=== PATIENT | male | born 1935 | race Caucasian/White ===

== ENCOUNTER 2020-04-08 23:22 | Inpatient (IN) | payer BC, MEDICARE ==
[~2020-04-08] VITALS: Ht 180.3 cm; Wt 93.1 kg
[2020-04-08] MEDS ORDERED: methylPREDNISolone SOD SUCC 125 MG/2 ML VIAL IV ONE (23:30)
[2020-04-08] MEDS ORDERED: [UNRECOGNIZED DRUG - REMARK] (23:42)
[2020-04-08] MEDS ORDERED: ALBU18HF2 IH (23:42)
[2020-04-08] MEDS ORDERED: methylPREDNISolone SOD SUCC 125 MG/2 ML VIAL ONE (23:43)
[2020-04-08] MEDS ORDERED: ALBUTEROL SULFATE 2.5 MG/3 ML NEBU NEB ONE (23:45)
[2020-04-08] MEDS ORDERED: ALBUTEROL SULFATE 2.5 MG/ 0.5 ML NEBU ONE (23:49)
[2020-04-08] MEDS ORDERED: IPRATROPIUM BROMIDE 0.5 MG/2.5 ML NEBU ONE (23:50)
[2020-04-08 23:52] LABS: BASOPHILS # (AUTO) 0.1 K/uL (0.0-8.0); BASOPHILS % (AUTO) 0.3 % (0.0-2.0); EOSINOPHILS # (AUTO) 0.1 K/uL (0.0-0.7); EOSINOPHILS % (AUTO) 0.3 % (0.0-7.0); HEMATOCRIT 39.2 % (36.7-47.1); HEMOGLOBIN 12.5 g/dL (12.5-16.3); LYMPHOCYTES % (AUTO) 5.1 % (20.5-51.5); MEAN CORPUSCULAR HEMOGLOBIN 26.2 uug (23.8-33.4); MEAN CORPUSCULAR HGB CONC 32 g/dL (32.5-36.3); MEAN CORPUSCULAR VOLUME 82.1 fL (73.0-96.2); MONOCYTES # (AUTO) 1.8 K/uL (2.0-10.0); MONOCYTES % (AUTO) 9.7 % (0.0-11.0); NEUTROPHILS # (AUTO) 15.9 K/uL (1.8-8.9); NEUTROPHILS % (AUTO) 84.6 % (38.5-71.5); PLATELET COUNT (AUTO) 307 K/uL (152-348); RED BLOOD CELL COUNT(AUTO) 4.77 MIL/uL (4.06-5.63); WHITE BLOOD COUNT (AUTO) 18.8 K/uL (3.6-10.2)
[2020-04-09] VITALS (22 sets, daily range): BP systolic 111–168; BP diastolic 51–82
[2020-04-09] MEDS ORDERED: IPRATROPIUM BROMIDE 0.5 MG/2.5 ML NEBU NEB ONE
[2020-04-09] MEDS ORDERED: CEFTRIAXONE 1 G in IV DEXTROSE 5% 50 ML IV ONE ×2
[2020-04-09] MEDS ORDERED: AZITHROMYCIN IV 500 MG in IV DEXTROSE 5% 250 ML IV ONE ×2
[2020-04-09] MEDS ORDERED: DILTIAZEM HCL 25 MG IV ONE ×2 (00:01→00:41)
[2020-04-09 00:16] LABS: CARBON DIOXIDE 28 mmol/L (21-32); CHLORIDE 101 mmol/L (98-107); GLUCOSE 209 mg/dL (74-106); POTASSIUM 5.1 mmol/L (3.5-5.1); UREA NITROGEN, BLOOD 30 mg/dL (7-18)
[2020-04-09] MEDS ORDERED: WARF2TAB57 PO (00:16)
[2020-04-09 00:17] LABS: CREATININE 1.6 mg/dL (0.6-1.3)
[2020-04-09 00:19] LABS: ALANINE AMINOTRANSFERASE 60 U/L (16-63); ALKALINE PHOSPHATASE 95 U/L (50-136); ASPARTATE AMINOTRANSFERASE 71 U/L (15-37); BILIRUBIN,DIRECT 0.2 mg/dL (0.0-0.2); BILIRUBIN,TOTAL 0.4 mg/dL (0.2-1.0); TOTAL PROTEIN, SERUM 7.3 g/dL (6.4-8.2)
[2020-04-09 00:20] LABS: ABG BASE EXCESS -2.2 mmol/L; ABG HCO3 27.1 mmol/L; ABG PCO2 68.5 mmHg (35.0-45.0); ABG PH 7.215 (7.350-7.450); ABG PO2 103.9 mmHg (75.0-100.0); ABG SITE LEFT RADIAL; ABG TOTAL HEMOGLOBIN 13.7 G/dL (13.5-18.0); COHb 2.1 % (0.5-1.5); O2Hb 94.6 % (94.0-97.0)
[2020-04-09] MEDS ORDERED: OLME20TA13 PO (00:20)
[2020-04-09] MEDS ORDERED: FLUT1BLS13 IH (00:20)
[2020-04-09] MEDS ORDERED: TRIA16.5 NS (00:20)
[2020-04-09] MEDS ORDERED: ALBU8HFA4 INH (00:20)
[2020-04-09] MEDS ORDERED: CEFTRIAXONE /D5W 50ML IVPB **ER PYXIS IV ONE (00:34)
[2020-04-09] MEDS ORDERED: DILTIAZEM HCL 25 MG IV IV ONE ×2 (00:45)
[2020-04-09] MEDS ORDERED: AZITHROMYCIN 500MG/ D5W 250ML IVPB **ER PYXIS ONLY IV ONE (00:45)
[2020-04-09] MEDS ORDERED: IV NORMAL SALINE 1000 ML BAG IV ONE (01:00)
[2020-04-09 01:32] LABS: ABG BASE EXCESS -2.9 mmol/L; ABG HCO3 22.4 mmol/L; ABG PCO2 41.3 mmHg (35.0-45.0); ABG PH 7.353 (7.350-7.450); ABG PO2 95.3 mmHg (75.0-100.0); ABG SITE RIGHT RADIAL; ABG TOTAL HEMOGLOBIN 11.9 G/dL (13.5-18.0); MetHb 0.1 % (0.0-1.5); VENT MODE BIPAP
[2020-04-09] MEDS ORDERED: METOPROLOL TARTRATE 5 MG/5 ML VIAL IVP ONE ×2 (01:51→02:00)
[2020-04-09] MEDS ORDERED: ONDANSETRON 4 MG/2 ML VIAL IV PRN (03:00)
[2020-04-09] MEDS ORDERED: Z GUARD REMEDY PASTE 57 GM TUBE TOP PRN (03:00)
[2020-04-09] MEDS ORDERED: MAGNESIUM HYDROXIDE 30 ML LIQUID UDC PO PRN (03:00)
[2020-04-09] MEDS ORDERED: ACETAMINOPHEN 325 MG TABLET PO PRN (03:00)
[2020-04-09] MEDS ORDERED: levoFLOXacin 750MG/D5W 750 MG in PREMIXED 1 EACH IV SCH (03:00)
[2020-04-09] MEDS ORDERED: IV NORMAL SALINE 250 ML IV PRN (04:15)
[2020-04-09] MEDS ORDERED: levoFLOXacin 750MG/D5W 150 ML IV ONE (04:29)
[2020-04-09] MEDS ORDERED: MEROPENEM 1GM/NS 100ML IVPB **ER PYXIS ONLY IV ONE (04:30)
[2020-04-09 05:30] LABS: BASOPHILS # (AUTO) 0.2 K/uL (0.0-8.0); BASOPHILS % (AUTO) 0.9 % (0.0-2.0); HEMATOCRIT 34.8 % (36.7-47.1); HEMOGLOBIN 11.1 g/dL (12.5-16.3); LYMPHOCYTES # (AUTO) 0.2 K/uL (20.0-40.0); LYMPHOCYTES % (AUTO) 1.2 % (20.5-51.5); MEAN CORPUSCULAR HEMOGLOBIN 25.9 uug (23.8-33.4); MEAN CORPUSCULAR HGB CONC 32 g/dL (32.5-36.3); MEAN CORPUSCULAR VOLUME 81.2 fL (73.0-96.2); MONOCYTES # (AUTO) 0.4 K/uL (2.0-10.0); MONOCYTES % (AUTO) 2.3 % (0.0-11.0); NEUTROPHILS # (AUTO) 15.4 K/uL (1.8-8.9); NEUTROPHILS % (AUTO) 95.6 % (38.5-71.5); PLATELET COUNT (AUTO) 220 K/uL (152-348); RED BLOOD CELL COUNT(AUTO) 4.29 MIL/uL (4.06-5.63); WHITE BLOOD COUNT (AUTO) 16.1 K/uL (3.6-10.2)
[2020-04-09 05:48] LABS: CREATININE 1.3 mg/dL (0.6-1.3); MAGNESIUM 1.4 mg/dL (1.8-2.4); PHOSPHOROUS 3.4 mg/dL (2.5-4.9)
[2020-04-09 05:55] LABS: THYROID STIMULATING HORMONE 0.342 mIU/mL (0.358-3.740)
[2020-04-09] MEDS ORDERED: MEROPENEM 1 G in IV NORMAL SALINE 100 ML IV ONE ×2 (06:00→07:30)
[2020-04-09] MEDS ORDERED: MEROPENEM 1 G in IV NORMAL SALINE 100 ML IV SCH ×2 (06:00→18:00)
[2020-04-09 06:10] LABS: POTASSIUM 4.5 mmol/L (3.5-5.1)
[2020-04-09] MEDS: PANTOPRAZOLE SODIUM 40 MG TABLET.DR PO SCH (07:41)
[2020-04-09] MEDS ORDERED: ALBUTEROL SULFATE 2.5 MG/ 0.5 ML NEBU NEB PRN (07:45)
[2020-04-09] MEDS ORDERED: HOME MED MISCELLANEOUS XX SCH (07:45)
[2020-04-09] MEDS ORDERED: Medication Not On Formulary EA (Olmesartan Medoxomil (Benicar) 20 MG) PO SCH (09:00)
[2020-04-09] MEDS ORDERED: methylPREDNISolone SOD SUCC 40 MG/ML VIAL IV ONE (09:00)
[2020-04-09] MEDS ORDERED: FLUTICASONE/VILANTEROL 1 EACH BLST.W.DEV INH SCH (09:00)
[2020-04-09] MEDS: CEFTRIAXONE 1 G in IV DEXTROSE 5% 50 ML IV SCH (09:28)
[2020-04-09] MEDS: LOSARTAN POTASSIUM 50 MG TABLET PO SCH (09:31)
[2020-04-09] MEDS: IPRATROPIUM BROMIDE 0.5 MG/2.5 ML NEBU NEB PRN (09:43)
[2020-04-09] MEDS: MAGNESIUM SULFATE/D5W 100 ML IV SCH ×2 (10:04→11:18)
[2020-04-09] MEDS: FLUTICASONE PROP NASAL SPRAY 16 GM BOTTLE NS SCH (11:17)
[2020-04-09] MEDS: methylPREDNISolone SOD SUCC 40 MG/ML VIAL IV SCH ×2 (15:37→21:10)
[2020-04-09] MEDS ORDERED: AMIODARONE HCL IV 150 MG in IV DEXTROSE 5% 100 ML IV ONE (16:00)
[2020-04-09] MEDS ORDERED: FUROSEMIDE 20 MG/2 ML VIAL IV ONE (16:15)
[2020-04-09] MEDS: AMIODARONE HCL IV 450 MG in IV DEXTROSE 5% 250 ML IV PRN (17:16)
[2020-04-09] MEDS: ASPIRIN EC 81 MG TABLET.DR PO SCH (17:19)
[2020-04-09] MEDS: ATORVASTATIN 10 MG TABLET PO SCH (21:10)
[2020-04-09] MEDS: AZITHROMYCIN 250 MG TABLET PO SCH (21:10)
[2020-04-10] VITALS (9 sets, daily range): BP systolic 121–172; BP diastolic 65–115
[2020-04-10] MEDS: AMIODARONE HCL IV 450 MG in IV DEXTROSE 5% 250 ML IV PRN (01:48)
[2020-04-10] MEDS: PANTOPRAZOLE SODIUM 40 MG TABLET.DR PO SCH (05:17)
[2020-04-10] MEDS: methylPREDNISolone SOD SUCC 40 MG/ML VIAL IV SCH ×3 (05:17→21:02)
[2020-04-10 05:29] LABS: BASOPHILS # (AUTO) 0.1 K/uL (0.0-8.0); BASOPHILS % (AUTO) 0.3 % (0.0-2.0); HEMATOCRIT 35.3 % (36.7-47.1); HEMOGLOBIN 11.3 g/dL (12.5-16.3); LYMPHOCYTES # (AUTO) 0.3 K/uL (20.0-40.0); LYMPHOCYTES % (AUTO) 1.5 % (20.5-51.5); MEAN CORPUSCULAR HEMOGLOBIN 25.8 uug (23.8-33.4); MEAN CORPUSCULAR HGB CONC 32 g/dL (32.5-36.3); MEAN CORPUSCULAR VOLUME 80.7 fL (73.0-96.2); MONOCYTES # (AUTO) 0.8 K/uL (2.0-10.0); MONOCYTES % (AUTO) 4.3 % (0.0-11.0); NEUTROPHILS # (AUTO) 18.3 K/uL (1.8-8.9); NEUTROPHILS % (AUTO) 93.9 % (38.5-71.5); PLATELET COUNT (AUTO) 245 K/uL (152-348); RED BLOOD CELL COUNT(AUTO) 4.37 MIL/uL (4.06-5.63); WHITE BLOOD COUNT (AUTO) 19.5 K/uL (3.6-10.2)
[2020-04-10 05:49] LABS: CREATININE 1.3 mg/dL (0.6-1.3); MAGNESIUM 2.1 mg/dL (1.8-2.4); PHOSPHOROUS 3.6 mg/dL (2.5-4.9); POTASSIUM 4.1 mmol/L (3.5-5.1)
[2020-04-10 07:48] LABS: ABG BASE EXCESS -0.2 mmol/L; ABG HCO3 24.2 mmol/L; ABG PCO2 38.6 mmHg (35.0-45.0); ABG PH 7.415 (7.350-7.450); ABG PO2 141.2 mmHg (75.0-100.0); ABG SITE LEFT RADIAL; ABG TOTAL HEMOGLOBIN 11.8 G/dL (13.5-18.0); COHb 0.6 % (0.5-1.5); MetHb 0.3 % (0.0-1.5); O2Hb 97.8 % (94.0-97.0)
[2020-04-10] MEDS: ASPIRIN EC 81 MG TABLET.DR PO SCH (09:00)
[2020-04-10] MEDS: CEFTRIAXONE 1 G in IV DEXTROSE 5% 50 ML IV SCH (09:15)
[2020-04-10] MEDS: LOSARTAN POTASSIUM 50 MG TABLET PO SCH (09:15)
[2020-04-10] MEDS: FLUTICASONE PROP NASAL SPRAY 16 GM BOTTLE NS SCH (09:20)
[2020-04-10] MEDS ORDERED: PHYTONADIONE 10 MG/1 ML AMPUL SQ ONE (11:00)
[2020-04-10] MEDS: METOPROLOL TARTRATE 25 MG TABLET PO SCH ×3 (12:18→23:10)
[2020-04-10] MEDS: FUROSEMIDE 20 MG/2 ML VIAL IV SCH (14:58)
[2020-04-10] MEDS: HYDROCODONE/APAP 5-325MG TABLET PO PRN ×2 (17:13→23:08)
[2020-04-10] MEDS: ATORVASTATIN 10 MG TABLET PO SCH (21:02)
[2020-04-10] MEDS: AZITHROMYCIN 250 MG TABLET PO SCH (23:07)
[2020-04-10] MEDS: ZOLPIDEM 5 MG TABLET PO PRN (23:12)
[2020-04-11] MEDS: IPRATROPIUM BROMIDE 0.5 MG/2.5 ML NEBU NEB PRN (00:01)
[2020-04-11 00:34] VITALS: BP 138/103
[2020-04-11 05:29] VITALS: BP 107/64
[2020-04-11] MEDS: methylPREDNISolone SOD SUCC 40 MG/ML VIAL IV SCH ×3 (05:52→21:06)
[2020-04-11] MEDS: METOPROLOL TARTRATE 25 MG TABLET PO SCH ×2 (05:53→12:34)
[2020-04-11] MEDS: PANTOPRAZOLE SODIUM 40 MG TABLET.DR PO SCH (05:53)
[2020-04-11] MEDS: FUROSEMIDE 20 MG/2 ML VIAL IV SCH (08:29)
[2020-04-11] MEDS: CEFTRIAXONE 1 G in IV DEXTROSE 5% 50 ML IV SCH (08:29)
[2020-04-11] MEDS: ASPIRIN EC 81 MG TABLET.DR PO SCH (08:30)
[2020-04-11] MEDS: LOSARTAN POTASSIUM 50 MG TABLET PO SCH (08:34)
[2020-04-11] MEDS: FLUTICASONE PROP NASAL SPRAY 16 GM BOTTLE NS SCH (08:35)
[2020-04-11 12:00] VITALS: BP 106/57
[2020-04-11] MEDS ORDERED: PHYTONADIONE 5 MG TABLET PO ONE (14:45)
[2020-04-11 16:03] VITALS: BP 115/52
[2020-04-11] MEDS: METOPROLOL SUCCINATE XL 25 MG TAB.SR.24H PO SCH (16:03)
[2020-04-11] MEDS ORDERED: METOPROLOL SUCCINATE XL 50 MG TAB.SR.24H PO SCH (17:00)
[2020-04-11 20:26] VITALS: BP 119/72
[2020-04-11] MEDS: ATORVASTATIN 10 MG TABLET PO SCH (21:06)
[2020-04-11] MEDS: ZOLPIDEM 5 MG TABLET PO PRN (21:06)
[2020-04-11] MEDS: AZITHROMYCIN 250 MG TABLET PO SCH (22:15)
[2020-04-12] VITALS (7 sets, daily range): BP systolic 100–130; BP diastolic 54–97
[2020-04-12 01:28] LABS: *BILIRUBIN,URIN NEGATIVE (NEGATIVE); *BLOOD, URINE 1+ (NEGATIVE); *CLARITY,URINE CLEAR (CLEAR); *COLOR,URINE YELLOW (YELLOW); *KETONES,URINE NEGATIVE (NEGATIVE); *UROBILINOGEN,URINE 0.2 E.U./dl (NORMAL); LEUKOCYTE ESTERASE ,URINE NEGATIVE (NEGATIVE); NITRITE, URINE NEGATIVE (NEGATIVE); UGLUCOSE NEGATIVE (NEGATIVE)
[2020-04-12 01:50] LABS: BACTERIA,URINE NONE SEEN /HPF (NONE SEEN); WBC,URINE 0-3 /HPF (0-3)
[2020-04-12] MEDS: methylPREDNISolone SOD SUCC 40 MG/ML VIAL IV SCH ×2 (05:35→20:06)
[2020-04-12] MEDS: PANTOPRAZOLE SODIUM 40 MG TABLET.DR PO SCH (05:36)
[2020-04-12] MEDS: METOPROLOL SUCCINATE XL 25 MG TAB.SR.24H PO SCH ×2 (05:37→17:07)
[2020-04-12 06:51] LABS: BASOPHILS % (AUTO) 0.2 % (0.0-2.0); HEMOGLOBIN 12.8 g/dL (12.5-16.3); LYMPHOCYTES # (AUTO) 0.2 K/uL (20.0-40.0); MEAN CORPUSCULAR HEMOGLOBIN 25.9 uug (23.8-33.4); MEAN CORPUSCULAR HGB CONC 32 g/dL (32.5-36.3); MEAN CORPUSCULAR VOLUME 81.3 fL (73.0-96.2); MONOCYTES # (AUTO) 0.9 K/uL (2.0-10.0); MONOCYTES % (AUTO) 5.3 % (0.0-11.0); NEUTROPHILS % (AUTO) 93.5 % (38.5-71.5); PLATELET COUNT (AUTO) 278 K/uL (152-348); RED BLOOD CELL COUNT(AUTO) 4.93 MIL/uL (4.06-5.63); WHITE BLOOD COUNT (AUTO) 17.1 K/uL (3.6-10.2)
[2020-04-12 07:04] LABS: CARBON DIOXIDE 35 mmol/L (21-32); CHLORIDE 103 mmol/L (98-107); CREATININE 1.4 mg/dL (0.6-1.3); GLUCOSE 127 mg/dL (74-106); MAGNESIUM 2.2 mg/dL (1.8-2.4); PHOSPHOROUS 3.6 mg/dL (2.5-4.9); POTASSIUM 4.7 mmol/L (3.5-5.1); UREA NITROGEN, BLOOD 44 mg/dL (7-18)
[2020-04-12] MEDS: ASPIRIN EC 81 MG TABLET.DR PO SCH (08:55)
[2020-04-12] MEDS: CEFTRIAXONE 1 G in IV DEXTROSE 5% 50 ML IV SCH (08:56)
[2020-04-12] MEDS ORDERED: FUROSEMIDE 20 MG/2 ML VIAL IV SCH (09:00)
[2020-04-12] MEDS: FLUTICASONE PROP NASAL SPRAY 16 GM BOTTLE NS SCH (10:24)
[2020-04-12] MEDS ORDERED: ACETAzolamide 250 MG TABLET PO ONE (14:00)
[2020-04-12] MEDS: METHIMAZOLE 5 MG TABLET PO SCH (16:01)
[2020-04-12] MEDS: LEVALBUTEROL HCL NEB 0.63 MG/3 ML NEBU NEB PRN ×2 (17:24→21:33)
[2020-04-12] MEDS: IPRATROPIUM BROMIDE 0.5 MG/2.5 ML NEBU NEB PRN ×2 (17:24→21:33)
[2020-04-12] MEDS: ZOLPIDEM 5 MG TABLET PO PRN (20:07)
[2020-04-12] MEDS: ATORVASTATIN 10 MG TABLET PO SCH (20:07)
[2020-04-12] MEDS: AZITHROMYCIN 250 MG TABLET PO SCH (22:57)
[2020-04-13] VITALS: BP 120/59
[2020-04-13] MEDS: LEVALBUTEROL HCL NEB 0.63 MG/3 ML NEBU NEB PRN ×2 (01:22→19:36)
[2020-04-13] MEDS: IPRATROPIUM BROMIDE 0.5 MG/2.5 ML NEBU NEB PRN ×2 (01:22→19:36)
[2020-04-13 06:00] VITALS: BP 154/68
[2020-04-13] MEDS: PANTOPRAZOLE SODIUM 40 MG TABLET.DR PO SCH (06:08)
[2020-04-13 07:07] LABS: BASOPHILS % (AUTO) 0.1 % (0.0-2.0); HEMATOCRIT 36.8 % (36.7-47.1); HEMOGLOBIN 11.7 g/dL (12.5-16.3); LYMPHOCYTES # (AUTO) 0.2 K/uL (20.0-40.0); LYMPHOCYTES % (AUTO) 1.1 % (20.5-51.5); MEAN CORPUSCULAR HEMOGLOBIN 25.8 uug (23.8-33.4); MEAN CORPUSCULAR HGB CONC 32 g/dL (32.5-36.3); MEAN CORPUSCULAR VOLUME 81.6 fL (73.0-96.2); MONOCYTES # (AUTO) 0.9 K/uL (2.0-10.0); MONOCYTES % (AUTO) 5.7 % (0.0-11.0); NEUTROPHILS % (AUTO) 93.1 % (38.5-71.5); PLATELET COUNT (AUTO) 229 K/uL (152-348); RED BLOOD CELL COUNT(AUTO) 4.51 MIL/uL (4.06-5.63); WHITE BLOOD COUNT (AUTO) 15.1 K/uL (3.6-10.2)
[2020-04-13 07:12] LABS: BILIRUBIN,TOTAL 0.5 mg/dL (0.2-1.0); CREATININE 1.2 mg/dL (0.6-1.3); POTASSIUM 4.6 mmol/L (3.5-5.1); TOTAL PROTEIN, SERUM 5.8 g/dL (6.4-8.2)
[2020-04-13] MEDS: methylPREDNISolone SOD SUCC 40 MG/ML VIAL IV SCH (08:50)
[2020-04-13] MEDS: FLUTICASONE PROP NASAL SPRAY 16 GM BOTTLE NS SCH (08:50)
[2020-04-13] MEDS: METOPROLOL SUCCINATE XL 25 MG TAB.SR.24H PO SCH ×2 (08:53→16:48)
[2020-04-13] MEDS: CEFTRIAXONE 1 G in IV DEXTROSE 5% 50 ML IV SCH (08:54)
[2020-04-13] MEDS: METHIMAZOLE 5 MG TABLET PO SCH (08:54)
[2020-04-13] MEDS: ASPIRIN EC 81 MG TABLET.DR PO SCH (08:54)
[2020-04-13] MEDS ORDERED: FUROSEMIDE 40 MG TABLET PO SCH (09:00)
[2020-04-13 11:51] VITALS: BP 93/57
[2020-04-13] MEDS: PROTEIN SUPPLEMENT (PROSTAT) 30 ML LIQUID PO SCH ×2 (12:08→16:45)
[2020-04-13 16:09] VITALS: BP 102/53
[2020-04-13] MEDS: predniSONE 20 MG TABLET PO SCH (16:44)
[2020-04-13] MEDS: APIXABAN 5 MG TABLET PO SCH (16:49)
[2020-04-13] MEDS: ATORVASTATIN 10 MG TABLET PO SCH (20:13)
[2020-04-13 20:18] VITALS: BP 91/59
[2020-04-13] MEDS: AZITHROMYCIN 250 MG TABLET PO SCH (22:19)
[2020-04-14] VITALS (7 sets, daily range): BP systolic 95–144; BP diastolic 58–89
[2020-04-14] MEDS: ZOLPIDEM 5 MG TABLET PO PRN (00:08)
[2020-04-14] MEDS: PANTOPRAZOLE SODIUM 40 MG TABLET.DR PO SCH (06:03)
[2020-04-14 07:15] LABS: BASOPHILS % (AUTO) 0.1 % (0.0-2.0); HEMOGLOBIN 12.5 g/dL (12.5-16.3); LYMPHOCYTES # (AUTO) 0.3 K/uL (20.0-40.0); LYMPHOCYTES % (AUTO) 1.7 % (20.5-51.5); MEAN CORPUSCULAR HEMOGLOBIN 25.9 uug (23.8-33.4); MEAN CORPUSCULAR HGB CONC 32 g/dL (32.5-36.3); MEAN CORPUSCULAR VOLUME 80.7 fL (73.0-96.2); MONOCYTES # (AUTO) 1.1 K/uL (2.0-10.0); MONOCYTES % (AUTO) 6.9 % (0.0-11.0); NEUTROPHILS # (AUTO) 14.2 K/uL (1.8-8.9); NEUTROPHILS % (AUTO) 91.3 % (38.5-71.5); PLATELET COUNT (AUTO) 226 K/uL (152-348); RED BLOOD CELL COUNT(AUTO) 4.83 MIL/uL (4.06-5.63); WHITE BLOOD COUNT (AUTO) 15.6 K/uL (3.6-10.2)
[2020-04-14 07:35] LABS: CREATININE 1.2 mg/dL (0.6-1.3); MAGNESIUM 2.4 mg/dL (1.8-2.4); POTASSIUM 4.1 mmol/L (3.5-5.1)
[2020-04-14] MEDS: PROTEIN SUPPLEMENT (PROSTAT) 30 ML LIQUID PO SCH ×3 (08:16→16:45)
[2020-04-14] MEDS: predniSONE 20 MG TABLET PO SCH ×2 (08:16→17:04)
[2020-04-14] MEDS: FLUTICASONE PROP NASAL SPRAY 16 GM BOTTLE NS SCH (08:16)
[2020-04-14] MEDS: METHIMAZOLE 5 MG TABLET PO SCH (08:26)
[2020-04-14] MEDS: APIXABAN 5 MG TABLET PO SCH ×2 (08:29→16:50)
[2020-04-14] MEDS: METOPROLOL SUCCINATE XL 25 MG TAB.SR.24H PO SCH ×2 (08:37→16:49)
[2020-04-14] MEDS ORDERED: FUROSEMIDE 20 MG TABLET PO SCH (09:00)
[2020-04-14 12:17] LABS: IRON, SERUM 30 ug/dL (50-175)
[2020-04-14] MEDS ORDERED: FLUT16SP NS (16:39)
[2020-04-14] MEDS ORDERED: ATOR10TA PO (16:39)
[2020-04-14] MEDS ORDERED: ACID1TAB4 PO (16:39)
[2020-04-14] MEDS ORDERED: PRED20TA PO (16:39)
[2020-04-14] MEDS ORDERED: PROT30LI PO (16:39)
[2020-04-14] MEDS ORDERED: IPRA0.2S6 NEB (16:39)
[2020-04-14] MEDS ORDERED: TEMA7.5C PO (16:39)
[2020-04-14] MEDS ORDERED: PANT40TA2 PO (16:39)
[2020-04-14] MEDS ORDERED: ACET325T53 PO (16:39)
[2020-04-14] MEDS ORDERED: MAGN400O6 PO (16:39)
[2020-04-14] MEDS ORDERED: HYDR-3972 PO (16:39)
[2020-04-14] MEDS ORDERED: APIX5TAB PO (16:39)
[2020-04-14] MEDS ORDERED: METH5TAB34 PO (16:39)
[2020-04-14] MEDS ORDERED: MULT-594 PO (16:39)
[2020-04-14] MEDS ORDERED: MENT71OI TOP (16:39)
[2020-04-14] MEDS ORDERED: METO-356 PO (16:39)
[2020-04-14] MEDS ORDERED: LEVA0.6320 NEB (16:39)
[2020-04-14] MEDS ORDERED: FURO20TA4 PO (16:39)
[2020-04-16 20:52] LABS: *THYROGLOBULIN <0.10
== END 2020-04-14 17:45 | DRG 871 ==
LOC: ER 23:24 → CCU 04-09 03:01 → TELE-TD3 04-10 06:02 → TELE3 04-12 10:15
PROVIDERS: ADMIT Hospitalist; ATTEND Internal Medicine
PROC: 5A09357 Assistance with Respiratory Ventilation, Less than 24 Consecutive Hours, Continuous Positive Airway Pressure (ICD-10-PCS; principal; 2020-04-09)
DX: A41.9 Sepsis, unspecified organism (principal); J96.01 Acute respiratory failure with hypoxia; I21.A1 Myocardial infarction type 2; I50.23 Acute on chronic systolic (congestive) heart failure; G92 Toxic encephalopathy; J69.0 Pneumonitis due to inhalation of food and vomit; N17.0 Acute kidney failure with tubular necrosis; E43 Unspecified severe protein-calorie malnutrition; J96.02 Acute respiratory failure with hypercapnia; J45.901 Unspecified asthma with (acute) exacerbation; I48.92 Unspecified atrial flutter; J44.0 Chronic obstructive pulmonary disease with (acute) lower respiratory infection; D68.9 Coagulation defect, unspecified; E87.2 Acidosis; I43 Cardiomyopathy in diseases classified elsewhere; K92.2 Gastrointestinal hemorrhage, unspecified; E83.42 Hypomagnesemia; Z86.711 Personal history of pulmonary embolism; Z86.718 Personal history of other venous thrombosis and embolism; Z79.899 Other long term (current) drug therapy; I48.91 Unspecified atrial fibrillation; E05.90 Thyrotoxicosis, unspecified without thyrotoxic crisis or storm; Z79.01 Long term (current) use of anticoagulants; Z79.82 Long term (current) use of aspirin; N28.1 Cyst of kidney, acquired; N40.0 Benign prostatic hyperplasia without lower urinary tract symptoms; I44.0 Atrioventricular block, first degree; I25.10 Atherosclerotic heart disease of native coronary artery without angina pectoris; I25.2 Old myocardial infarction; I08.1 Rheumatic disorders of both mitral and tricuspid valves; I11.0 Hypertensive heart disease with heart failure; T45.515A Adverse effect of anticoagulants, initial encounter; Y92.89 Other specified places as the place of occurrence of the external cause; E66.9 Obesity, unspecified; E11.9 Type 2 diabetes mellitus without complications; D50.9 Iron deficiency anemia, unspecified; Z68.28 Body mass index [BMI] 28.0-28.9, adult; R53.1 Weakness
CPT/HCPCS: 36415; 36600; 70030-TC; 71045; 76604; 82378; 82785; 83550; 83605; 83615; 83735; 84100; 84443; 84480; 85025; 85610; 85730; 86140; 87040; 87070; 87086; 93005; 93307; 94640; 94660; A4663; G0378; J0282; J0456; J0696; J1940; J1956; J2185; J2920; J2930; J3430; J3475; J3490; J3535; J3590; J7030; J7050; J7060; J7512; J7614; J8499; Q0144

== ENCOUNTER 2020-04-14 12:47 | Inpatient (IN) | payer BC, MEDICARE ==
[~2020-04-14] VITALS: Ht 180.3 cm; Wt 89.4 kg
[2020-04-14 07:30] VITALS: BP 127/77
[2020-04-14 11:30] VITALS: BP 117/66
[~2020-04-14 12:47] MED LIST: ALBU8HFA4 INH; FLUT1BLS13 IH; OLME20TA13 PO; TRIA16.5 NS; WARF2TAB57 PO
[2020-04-14 15:30] VITALS: BP 116/89
[2020-04-14] MEDS ORDERED: LEVA0.6320 NEB (16:39)
[2020-04-14] MEDS ORDERED: MULT-594 PO (16:39)
[2020-04-14] MEDS ORDERED: ACET325T53 PO (16:39)
[2020-04-14] MEDS ORDERED: MAGN400O6 PO (16:39)
[2020-04-14] MEDS ORDERED: ACID1TAB4 PO (16:39)
[2020-04-14] MEDS ORDERED: IPRA0.2S6 NEB (16:39)
[2020-04-14] MEDS ORDERED: ATOR10TA PO (16:39)
[2020-04-14] MEDS ORDERED: PANT40TA2 PO (16:39)
[2020-04-14] MEDS ORDERED: FLUT16SP NS (16:39)
[2020-04-14] MEDS ORDERED: MENT71OI TOP (16:39)
[2020-04-14] MEDS ORDERED: METO-356 PO (16:39)
[2020-04-14] MEDS ORDERED: FURO20TA4 PO (16:39)
[2020-04-14] MEDS ORDERED: TEMA7.5C PO (16:39)
[2020-04-14] MEDS ORDERED: PROT30LI PO (16:39)
[2020-04-14] MEDS ORDERED: PRED20TA PO (16:39)
[2020-04-14] MEDS ORDERED: METH5TAB34 PO (16:39)
[2020-04-14] MEDS ORDERED: APIX5TAB PO (16:39)
[2020-04-14] MEDS ORDERED: HYDR-3972 PO (16:39)
[2020-04-14 20:21] VITALS: BP 130/58
[2020-04-14] MEDS ORDERED: HYDROCODONE/APAP 5-325MG TABLET PO PRN (20:45)
[2020-04-14] MEDS ORDERED: Z GUARD REMEDY PASTE 57 GM TUBE TOP PRN (20:45)
[2020-04-14] MEDS ORDERED: ACETAMINOPHEN 325 MG TABLET PO PRN (20:45)
[2020-04-14] MEDS ORDERED: MAGNESIUM HYDROXIDE 30 ML LIQUID UDC PO PRN (20:45)
[2020-04-14] MEDS: ATORVASTATIN 10 MG TABLET PO SCH (21:35)
[2020-04-14] MEDS: TEMAZEPAM 7.5 MG CAPSULE PO PRN (21:35)
[2020-04-15 04:21] VITALS: BP 114/70
--- NOTE | 2020-04-15 05:05 | NUR ---
Patient is a new admission from [facility] with admitting diagnosis of COPD Exacerbation under care of Dr. Cary. AAO x4. No acute distress or SOB was noted. On 1 L O2 via NC. Condition fair. VSS. Able to make needs known. No Complain of pain. Contacted Dr. Sr for medication reconciliation. RT contacted to put the patient on Bipap machine at night. Physical assessment done. MRSA swab done and sent to the lab. All due medications administered and well tolerated. Fall prevention maintained. All needs attended promptly. Bed in locked and low position, Side rails up x2 for safety. Call light and frequently using items within reach. Continue to monitor and will endorse to the oncoming nurse.
[2020-04-15] MEDS: PANTOPRAZOLE SODIUM 40 MG TABLET.DR PO SCH (06:07)
[2020-04-15 07:30] VITALS: BP 118/67
[2020-04-15] MEDS ORDERED: predniSONE 20 MG TABLET PO SCH (08:00)
[2020-04-15] MEDS: FLUTICASONE PROP NASAL SPRAY 16 GM BOTTLE NS SCH (13:25)
[2020-04-15] MEDS: METOPROLOL SUCCINATE XL 25 MG TAB.SR.24H PO SCH ×2 (13:29→17:00)
[2020-04-15] MEDS: ACIDOPHILUS/BULGARICUS CHEW TAB PO SCH (13:32)
[2020-04-15] MEDS: MULTIVITAMINS,THERAPEUTIC TABLET PO SCH (13:32)
[2020-04-15] MEDS: METHIMAZOLE 5 MG TABLET PO SCH (13:33)
[2020-04-15] MEDS: FUROSEMIDE 20 MG TABLET PO SCH (13:33)
[2020-04-15] MEDS: APIXABAN 5 MG TABLET PO SCH ×2 (13:36→17:26)
[2020-04-15] MEDS: PROTEIN SUPPLEMENT (PROSTAT) 30 ML LIQUID PO SCH ×3 (13:38→17:24)
[2020-04-15 15:49] VITALS: BP 110/62
[2020-04-15] MEDS: predniSONE 20 MG TABLET PO SCH (17:25)
--- NOTE | 2020-04-15 19:45 | NUR ---
Sleeping during initial rounds. No s/s of pain/discomforts noted. Safety measures and fall prevention maintained. Continue care as planned.
[2020-04-15 20:21] VITALS: BP 107/46
[2020-04-15] MEDS: ATORVASTATIN 10 MG TABLET PO SCH (20:32)
[2020-04-15] MEDS: TEMAZEPAM 7.5 MG CAPSULE PO PRN (21:08)
[2020-04-15] MEDS: IPRATROPIUM BROMIDE 0.5 MG/2.5 ML NEBU NEB PRN (21:18)
[2020-04-15] MEDS: LEVALBUTEROL HCL NEB 0.63 MG/3 ML NEBU NEB PRN (21:18)
[2020-04-16 04:58] VITALS: BP 112/87
--- NOTE | 2020-04-16 05:40 | NUR ---
Shift End Report: Slept good. VS stable. No complaint presented throughout the night. All needs attended and met. No significant event reported. Continue current rehab plan of care.
[2020-04-16] MEDS: PANTOPRAZOLE SODIUM 40 MG TABLET.DR PO SCH (06:08)
[2020-04-16 08:00] VITALS: BP 123/80
[2020-04-16] MEDS: predniSONE 20 MG TABLET PO SCH ×2 (08:31→17:37)
[2020-04-16] MEDS: PROTEIN SUPPLEMENT (PROSTAT) 30 ML LIQUID PO SCH ×3 (08:33→17:40)
[2020-04-16] MEDS: FLUTICASONE PROP NASAL SPRAY 16 GM BOTTLE NS SCH (08:33)
[2020-04-16] MEDS: MULTIVITAMINS,THERAPEUTIC TABLET PO SCH (08:34)
[2020-04-16] MEDS: FUROSEMIDE 20 MG TABLET PO SCH (08:34)
[2020-04-16] MEDS: ACIDOPHILUS/BULGARICUS CHEW TAB PO SCH (08:34)
[2020-04-16] MEDS: METOPROLOL SUCCINATE XL 25 MG TAB.SR.24H PO SCH ×2 (08:35→17:39)
[2020-04-16] MEDS: APIXABAN 5 MG TABLET PO SCH ×2 (08:36→17:38)
[2020-04-16] MEDS: METHIMAZOLE 5 MG TABLET PO SCH (08:44)
--- NOTE | 2020-04-16 08:49 | NUR ---
Patient is awake, alert, in bed, no complain of pain or discomfort at this time. Patient on 2LPM via NC. Needs attended to promptly. Patient noted with heart rate of 141 and he complained of constipation. RIC Mcgregor saw patient, update given and said hold PT for now due to elevated HR and that he will order something for constipation. Will continue to monitor and update PT.
--- NOTE | 2020-04-16 09:00 | NUR ---
Patient seen and examined by DNP Jose Mcgregor, informed him regarding HR of 141 with no new order at this time since patient is already on betablocker. Also informed DNP regarding patient's complain of constipation and he said he will put in order.
[2020-04-16] MEDS ORDERED: BISACODYL 5 MG TABLET.DR PO ONE (09:30)
[2020-04-16 10:40] LABS: BASOPHILS # (AUTO) 0.1 K/uL (0.0-8.0); BASOPHILS % (AUTO) 0.5 % (0.0-2.0); EOSINOPHILS % (AUTO) 0.1 % (0.0-7.0); HEMATOCRIT 41.4 % (36.7-47.1); HEMOGLOBIN 13.1 g/dL (12.5-16.3); LYMPHOCYTES # (AUTO) 0.2 K/uL (20.0-40.0); LYMPHOCYTES % (AUTO) 1.4 % (20.5-51.5); MEAN CORPUSCULAR HEMOGLOBIN 25.7 uug (23.8-33.4); MEAN CORPUSCULAR HGB CONC 32 g/dL (32.5-36.3); MEAN CORPUSCULAR VOLUME 81.3 fL (73.0-96.2); MONOCYTES # (AUTO) 0.9 K/uL (2.0-10.0); MONOCYTES % (AUTO) 6.2 % (0.0-11.0); NEUTROPHILS # (AUTO) 13.4 K/uL (1.8-8.9); NEUTROPHILS % (AUTO) 91.8 % (38.5-71.5); PLATELET COUNT (AUTO) 194 K/uL (152-348); WHITE BLOOD COUNT (AUTO) 14.6 K/uL (3.6-10.2)
[2020-04-16] MEDS: AMIODARONE HCL 200 MG TABLET PO SCH ×3 (10:45→20:24)
[2020-04-16 11:01] LABS: MAGNESIUM 1.8 mg/dL (1.8-2.4); PHOSPHOROUS 2.6 mg/dL (2.5-4.9); POTASSIUM 3.5 mmol/L (3.5-5.1)
[2020-04-16 16:09] VITALS: BP 125/93
--- NOTE | 2020-04-16 16:15 | NUR ---
Informed Dr. Grayson regarding HR still at 140 despite being given amiodarone and his routine metoprolol, but no new order at this time. Will continue to monitor.
[2020-04-16] MEDS: ATORVASTATIN 10 MG TABLET PO SCH (20:25)
[2020-04-16 20:28] VITALS: BP 109/72
[2020-04-16] MEDS: TEMAZEPAM 7.5 MG CAPSULE PO PRN (20:33)
[2020-04-16] MEDS: IPRATROPIUM BROMIDE 0.5 MG/2.5 ML NEBU NEB PRN (21:10)
--- NOTE | 2020-04-16 21:10 | NUR ---
Received pt resting in bed. AAO x4. On 2L O2 via NC, no acute distress noted. Pt received his breathing treatment. Due meds given as ordered. Safety measures maintained. Call light and personal items within reach. Will continue to monitor.
[2020-04-16] MEDS: LEVALBUTEROL HCL NEB 0.63 MG/3 ML NEBU NEB PRN (21:11)
[2020-04-17 04:42] VITALS: BP 113/70
[2020-04-17] MEDS: PANTOPRAZOLE SODIUM 40 MG TABLET.DR PO SCH (06:08)
[2020-04-17] MEDS: IPRATROPIUM BROMIDE 0.5 MG/2.5 ML NEBU NEB PRN ×2 (07:17→20:40)
[2020-04-17] MEDS: FLUTICASONE PROP NASAL SPRAY 16 GM BOTTLE NS SCH (07:54)
[2020-04-17] MEDS: ACIDOPHILUS/BULGARICUS CHEW TAB PO SCH (07:55)
[2020-04-17] MEDS: FUROSEMIDE 20 MG TABLET PO SCH (07:55)
[2020-04-17] MEDS: MULTIVITAMINS,THERAPEUTIC TABLET PO SCH (07:55)
[2020-04-17] MEDS: predniSONE 20 MG TABLET PO SCH (07:55)
[2020-04-17] MEDS: APIXABAN 5 MG TABLET PO SCH ×2 (07:57→16:26)
[2020-04-17] MEDS: METHIMAZOLE 5 MG TABLET PO SCH (07:57)
[2020-04-17 08:00] VITALS: BP 110/77
[2020-04-17] MEDS: METOPROLOL SUCCINATE XL 25 MG TAB.SR.24H PO SCH ×2 (08:00→16:30)
[2020-04-17] MEDS: PROTEIN SUPPLEMENT (PROSTAT) 30 ML LIQUID PO SCH ×3 (08:04→16:11)
[2020-04-17] MEDS: AMIODARONE HCL 200 MG TABLET PO SCH ×2 (10:34→20:07)
[2020-04-17] MEDS ORDERED: POTASSIUM CHLORIDE 20 MEQ TAB.PRT.SR PO ONE (11:00)
[2020-04-17 16:00] VITALS: BP 101/72
[2020-04-17 20:04] VITALS: BP 108/79
[2020-04-17] MEDS: ATORVASTATIN 10 MG TABLET PO SCH (20:07)
[2020-04-17] MEDS: TEMAZEPAM 7.5 MG CAPSULE PO PRN (20:08)
[2020-04-17] MEDS: LEVALBUTEROL HCL NEB 0.63 MG/3 ML NEBU NEB PRN (20:41)
--- NOTE | 2020-04-17 20:51 | NUR ---
Received pt resting in bed and on breathing treatment. AAO x4. On 2L O2 via NC, no acute distress noted. Denies pain/ discomfort. Due meds given as ordered. Sleeping pill also given as per pt request. Safety measures maintained. Call light and personal items within reach. Will continue to monitor.
[2020-04-18] MEDS: LEVALBUTEROL HCL NEB 0.63 MG/3 ML NEBU NEB PRN (03:42)
[2020-04-18] MEDS: IPRATROPIUM BROMIDE 0.5 MG/2.5 ML NEBU NEB PRN (03:42)
[2020-04-18 04:58] VITALS: BP 106/86
[2020-04-18] MEDS: PANTOPRAZOLE SODIUM 40 MG TABLET.DR PO SCH (06:09)
[2020-04-18 07:30] VITALS: BP 126/88
[2020-04-18 07:36] LABS: BASOPHILS # (AUTO) 0.1 K/uL (0.0-8.0); BASOPHILS % (AUTO) 0.4 % (0.0-2.0); EOSINOPHILS % (AUTO) 0.3 % (0.0-7.0); HEMATOCRIT 40.4 % (36.7-47.1); LYMPHOCYTES # (AUTO) 0.3 K/uL (20.0-40.0); LYMPHOCYTES % (AUTO) 2.2 % (20.5-51.5); MEAN CORPUSCULAR HEMOGLOBIN 25.9 uug (23.8-33.4); MEAN CORPUSCULAR HGB CONC 32 g/dL (32.5-36.3); MEAN CORPUSCULAR VOLUME 80.7 fL (73.0-96.2); MONOCYTES # (AUTO) 1.6 K/uL (2.0-10.0); MONOCYTES % (AUTO) 10.5 % (0.0-11.0); NEUTROPHILS # (AUTO) 13.6 K/uL (1.8-8.9); NEUTROPHILS % (AUTO) 86.6 % (38.5-71.5); PLATELET COUNT (AUTO) 241 K/uL (152-348); WHITE BLOOD COUNT (AUTO) 15.7 K/uL (3.6-10.2)
[2020-04-18 07:43] LABS: CREATININE 0.9 mg/dL (0.6-1.3); MAGNESIUM 2.1 mg/dL (1.8-2.4); PHOSPHOROUS 2.3 mg/dL (2.5-4.9); POTASSIUM 4.2 mmol/L (3.5-5.1)
[2020-04-18] MEDS: ACIDOPHILUS/BULGARICUS CHEW TAB PO SCH (08:50)
[2020-04-18] MEDS: MULTIVITAMINS,THERAPEUTIC TABLET PO SCH (08:50)
[2020-04-18] MEDS: AMIODARONE HCL 200 MG TABLET PO SCH (08:50)
[2020-04-18] MEDS: FUROSEMIDE 20 MG TABLET PO SCH (08:50)
[2020-04-18] MEDS: METOPROLOL SUCCINATE XL 25 MG TAB.SR.24H PO SCH ×2 (08:52→17:40)
[2020-04-18] MEDS: METHIMAZOLE 5 MG TABLET PO SCH (08:53)
[2020-04-18] MEDS: APIXABAN 5 MG TABLET PO SCH ×2 (08:54→16:33)
[2020-04-18] MEDS: PROTEIN SUPPLEMENT (PROSTAT) 30 ML LIQUID PO SCH ×3 (08:54→17:32)
[2020-04-18] MEDS: FLUTICASONE PROP NASAL SPRAY 16 GM BOTTLE NS SCH (08:54)
[2020-04-18] MEDS ORDERED: predniSONE 20 MG TABLET PO SCH (09:00)
[2020-04-18] MEDS ORDERED: ACETAzolamide 250 MG TABLET PO ONE (12:00)
--- NOTE | 2020-04-18 12:00 | NUR ---
Patient seen by Dr. Kenan MD made aware that patient still having episodes of tachycardia 110's-120's but patient remains asymptomatic. Per MD no new order at this time.
[2020-04-18] MEDS ORDERED: NEUTRA PHOS PACKET PO ONE (15:45)
[2020-04-18 16:05] VITALS: BP 118/70
[2020-04-18 17:40] VITALS: BP 118/72
--- NOTE | 2020-04-18 18:45 | NUR ---
Received an order from Dr. Núñez to discharge patient to telemetry for atrial flutter. Patient made aware regarding discharge to telemetry and patient is agreeable. Discharge papers signed by patient. All belongings well accounted for.
--- NOTE | 2020-04-18 19:00 | NUR ---
Discharged patient to telemetry for atrial flutter. Patient remains alert, oriented x 4. He denies any pain or discomfort. He is on 2 LPM via nasal cannula. No complain of any SOB or dyspnea. Peripheral IV line on the right AC G22, patent with no signs of infection. Report given to Kelvin KASPER.
[2020-04-18] MEDS ORDERED: AMIODARONE HCL 200 MG TABLET PO SCH (21:00)
== END 2020-04-18 18:35 | disposition short-term general hospital (02) | DRG 189 ==
PROVIDERS: ADMIT Physical Medicine & Rehabilitation Pain Medicine; ATTEND Physical Medicine & Rehabilitation Pain Medicine
DX: J96.02 Acute respiratory failure with hypercapnia (principal); I50.43 Acute on chronic combined systolic (congestive) and diastolic (congestive) heart failure; I21.A1 Myocardial infarction type 2; E43 Unspecified severe protein-calorie malnutrition; G92 Toxic encephalopathy; N17.0 Acute kidney failure with tubular necrosis; J69.0 Pneumonitis due to inhalation of food and vomit; I48.92 Unspecified atrial flutter; J44.1 Chronic obstructive pulmonary disease with (acute) exacerbation; J45.901 Unspecified asthma with (acute) exacerbation; J44.0 Chronic obstructive pulmonary disease with (acute) lower respiratory infection; I42.9 Cardiomyopathy, unspecified; D68.9 Coagulation defect, unspecified; E87.2 Acidosis; I43 Cardiomyopathy in diseases classified elsewhere; J96.01 Acute respiratory failure with hypoxia; D64.9 Anemia, unspecified; E78.5 Hyperlipidemia, unspecified; I08.1 Rheumatic disorders of both mitral and tricuspid valves; I11.0 Hypertensive heart disease with heart failure; I48.91 Unspecified atrial fibrillation; Z86.711 Personal history of pulmonary embolism; Z86.718 Personal history of other venous thrombosis and embolism; D50.9 Iron deficiency anemia, unspecified; E05.90 Thyrotoxicosis, unspecified without thyrotoxic crisis or storm; E66.9 Obesity, unspecified; Z68.28 Body mass index [BMI] 28.0-28.9, adult; K59.00 Constipation, unspecified; Z79.01 Long term (current) use of anticoagulants; R73.03 Prediabetes
CPT/HCPCS: 36415; 83735; 84100; 85025; 93005; 94640; 94660; J3535; J3590; J7512; J8499

== ENCOUNTER 2020-04-22 13:56 | Inpatient (IN) | payer BC, MEDICARE ==
[~2020-04-22] VITALS: Ht 180.3 cm; Wt 85.5 kg
[~2020-04-22 13:56] MED LIST changes: +ACET325T53 PO; +ACID1TAB4 PO; -ALBU8HFA4 INH; +APIX5TAB PO; +ATOR10TA PO; +FLUT16SP NS; -FLUT1BLS13 IH; +FURO20TA4 PO; +HYDR-3972 PO; +IPRA0.2S6 NEB; +LEVA0.6320 NEB; +MAGN400O6 PO; +MENT71OI TOP; +METH5TAB34 PO; +METO-356 PO; +MULT-594 PO; -OLME20TA13 PO; +PANT40TA2 PO; +PRED20TA PO; +PROT30LI PO; +TEMA7.5C PO; -TRIA16.5 NS; -WARF2TAB57 PO
--- NOTE | 2020-04-22 18:33 | NUR ---
84 year old male received from [facility] room 317.pt isxox4.orient the pt to room .call light with in reach. called for admission orders
[2020-04-22] MEDS ORDERED: METO-357 PO (18:43)
--- NOTE | 2020-04-22 20:00 | NUR ---
RECEIVED PATIENT AWAKE IN BED. A/O X4. DENIES ANY PAIN OR DISCOMFORT. NO RESP. DISTRESS NOTED. ON RA. VS WNL. CALL LIGHT IN REACH. ALL NEEDS ATTENDED. WILL CONTINUE TO MONITOR AND ASSESS.
[2020-04-22] MEDS ORDERED: methylPREDNISolone 1 PACK TAB.DS.PK [4MG TAB] PO ONE (20:45)
[2020-04-22] MEDS ORDERED: TEMAZEPAM 7.5 MG CAPSULE PO PRN (20:45)
[2020-04-22] MEDS ORDERED: MAGNESIUM HYDROXIDE 30 ML LIQUID UDC PO PRN (20:45)
[2020-04-22] MEDS: ATORVASTATIN 10 MG TABLET PO SCH (21:12)
[2020-04-22 21:28] VITALS: BP 110/70
[2020-04-23 05:16] VITALS: BP 130/70
[2020-04-23] MEDS: PANTOPRAZOLE SODIUM 40 MG TABLET.DR PO SCH (06:29)
--- NOTE | 2020-04-23 07:11 | NUR ---
RECEIVED SITTING IN THE CHAIR ,PT IS AXOX4 VS ARE STABLE CALL LIGHT WITH IN REACH
[2020-04-23] MEDS ORDERED: methylPREDNISolone 4 MG TABLET (DAY#1, ACB) PO ONE (07:30)
[2020-04-23] MEDS: AMIODARONE HCL 200 MG TABLET PO SCH (07:56)
[2020-04-23] MEDS: METOPROLOL SUCCINATE XL 50 MG TAB.SR.24H PO SCH ×2 (07:56→16:04)
[2020-04-23] MEDS: METHIMAZOLE 5 MG TABLET PO SCH (07:56)
[2020-04-23] MEDS: MULTIVITAMINS,THERAPEUTIC TABLET PO SCH (07:56)
[2020-04-23] MEDS: ACIDOPHILUS/BULGARICUS CHEW TAB PO SCH (07:56)
[2020-04-23] MEDS: FUROSEMIDE 20 MG TABLET PO SCH (07:56)
[2020-04-23] MEDS: APIXABAN 5 MG TABLET PO SCH ×2 (07:58→16:04)
[2020-04-23 08:00] VITALS: BP 120/69
[2020-04-23] MEDS ORDERED: predniSONE 20 MG TABLET PO SCH (08:00)
[2020-04-23] MEDS ORDERED: METOPROLOL SUCCINATE XL 25 MG TAB.SR.24H PO SCH (09:00)
[2020-04-23] MEDS: FLUTICASONE PROP NASAL SPRAY 16 GM BOTTLE NS SCH (09:52)
[2020-04-23] MEDS: IPRATROPIUM BROMIDE 0.5 MG/2.5 ML NEBU NEB PRN (11:28)
[2020-04-23] MEDS: ALBUTEROL SULFATE 1.25 MG/3 ML NEBU NEB PRN (11:28)
[2020-04-23] MEDS ORDERED: methylPREDNISolone 4 MG TABLET (DAY#1, PC LUNCH) PO ONE (12:30)
[2020-04-23 15:05] VITALS: BP 111/67
[2020-04-23] MEDS ORDERED: methylPREDNISolone 4 MG TABLET (DAY#1, PC DINNER) PO ONE (17:30)
--- NOTE | 2020-04-23 19:30 | NUR ---
Received patient lying in bed. AAOx4. No s/s of acute distress noted at this time. Pt is on RA. Denies SOB and Chest pain. Safety measures in place, bed low and locked, and call light within reach. Will continue to monitor.
[2020-04-23 20:00] VITALS: BP 129/77
[2020-04-23] MEDS: ATORVASTATIN 10 MG TABLET PO SCH (20:33)
[2020-04-23] MEDS ORDERED: methylPREDNISolone 4 MG TABLET (DAY#1, HS) PO ONE (21:00)
[2020-04-24 04:00] VITALS: BP 129/70
--- NOTE | 2020-04-24 06:30 | NUR ---
Pt sitting in chair. Asked for coffee this morning. Pt spilled coffee on themselves. Pt was cleaned and I assessed the area. Redness on the inner thighs bilaterally, blanchable. Will endorse to oncoming nurse.
[2020-04-24] MEDS: PANTOPRAZOLE SODIUM 40 MG TABLET.DR PO SCH (06:31)
[2020-04-24] MEDS ORDERED: methylPREDNISolone 4 MG TABLET (DAY#2, ACB) PO ONE (07:30)
[2020-04-24 08:00] VITALS: BP 127/68
--- NOTE | 2020-04-24 08:00 | NUR ---
UP ON W/C WHEN RECEIVED WATCHING TV, DENIES PAIN OR SOB
[2020-04-24] MEDS: ACIDOPHILUS/BULGARICUS CHEW TAB PO SCH (08:27)
[2020-04-24] MEDS: AMIODARONE HCL 200 MG TABLET PO SCH (08:27)
[2020-04-24] MEDS: FUROSEMIDE 20 MG TABLET PO SCH (08:27)
[2020-04-24] MEDS: FLUTICASONE PROP NASAL SPRAY 16 GM BOTTLE NS SCH (08:27)
[2020-04-24] MEDS: MULTIVITAMINS,THERAPEUTIC TABLET PO SCH (08:27)
[2020-04-24] MEDS: METOPROLOL SUCCINATE XL 50 MG TAB.SR.24H PO SCH ×2 (08:28→16:48)
[2020-04-24] MEDS: METHIMAZOLE 5 MG TABLET PO SCH (08:28)
[2020-04-24] MEDS: APIXABAN 5 MG TABLET PO SCH ×2 (08:29→16:49)
--- NOTE | 2020-04-24 12:00 | NUR ---
SEEN BY PHYSICAL THERAPIST FOR ROUTINE EXERCISES SEE PT NOTES
[2020-04-24] MEDS ORDERED: methylPREDNISolone 4 MG TABLET (DAY#2, PC LUNCH) PO ONE (12:30)
[2020-04-24 16:24] VITALS: BP 110/59
[2020-04-24] MEDS ORDERED: methylPREDNISolone 4 MG TABLET (DAY#, PC DINNER) PO ONE (17:30)
--- NOTE | 2020-04-24 18:53 | NUR ---
TOLERATING PHYSICAL THERAPY REQUIRED, NO CHEST PAIN OR SOB SEEN BY CREDIT SPECIALIST NO NEW ORDERS
--- NOTE | 2020-04-24 19:30 | NUR ---
RECEIVED PT AWAKE, ALERT AND ORIENTEDX4. PT SHOWS NO ACUTE DISTRESS. IV INTACT. SAFETY AND COMFORT PROVIDED. WILL CONTINUE TO MONITOR.
[2020-04-24 20:09] VITALS: BP 123/72
[2020-04-24] MEDS: ATORVASTATIN 10 MG TABLET PO SCH (20:42)
[2020-04-24] MEDS ORDERED: methylPREDNISolone 4 MG TABLET (DAY#2, HS) PO ONE (21:00)
[2020-04-25 05:55] VITALS: BP 117/73
[2020-04-25] MEDS: PANTOPRAZOLE SODIUM 40 MG TABLET.DR PO SCH (06:15)
--- NOTE | 2020-04-25 06:48 | NUR ---
PT SLEPT INTERMITTENTLY. PT IN NO ACUTE DISTRESS. IV INTACT. PRESCRIBED MEDICATION GIVEN AND PT TOLERATED IT WELL. SAFETY AND COMFORT PROVIDED. ALL NEEDS ARE MET. WILL ENDORSE TO INCOMING NURSE FOR CONTINUITY OF CARE.
[2020-04-25] MEDS ORDERED: methylPREDNISolone 4 MG TABLET (DAY#3, ACB) PO ONE (07:30)
[2020-04-25 08:00] VITALS: BP 127/69
[2020-04-25] MEDS: FLUTICASONE PROP NASAL SPRAY 16 GM BOTTLE NS SCH (08:03)
[2020-04-25] MEDS: FUROSEMIDE 20 MG TABLET PO SCH (08:03)
[2020-04-25] MEDS: MULTIVITAMINS,THERAPEUTIC TABLET PO SCH (08:03)
[2020-04-25] MEDS: AMIODARONE HCL 200 MG TABLET PO SCH (08:05)
[2020-04-25] MEDS: METHIMAZOLE 5 MG TABLET PO SCH (08:06)
[2020-04-25] MEDS: METOPROLOL SUCCINATE XL 50 MG TAB.SR.24H PO SCH ×2 (08:06→16:15)
[2020-04-25] MEDS: ACIDOPHILUS/BULGARICUS CHEW TAB PO SCH (08:07)
[2020-04-25] MEDS: APIXABAN 5 MG TABLET PO SCH ×2 (08:07→16:16)
--- NOTE | 2020-04-25 09:45 | NUR ---
RECEIVED PATIENT AWAKE IN BED IN STABLE CONDITION. CONTINUE THERAPY FOR INCREASE STRENGHT AND INCREASE ENDURANCE. PATIENT ASSISTED FROM BED TO WHEELCHAIR. TOLERATED WELL. NO COMPLAINT OF PAIN/DISCOMFORT NOTED. NOT IN DISTRESS. WILL CONTINUE MONITOR
[2020-04-25] MEDS ORDERED: methylPREDNISolone 4 MG TABLET (DAY#3, PC LUNCH) PO ONE (12:30)
[2020-04-25 16:00] VITALS: BP 126/60
[2020-04-25] MEDS ORDERED: methylPREDNISolone 4 MG TABLET (DAY#3, PC DINNER) PO ONE (17:30)
[2020-04-25 20:00] VITALS: BP 142/80
[2020-04-25] MEDS: ATORVASTATIN 10 MG TABLET PO SCH (20:36)
[2020-04-25] MEDS ORDERED: methylPREDNISolone 4 MG TABLET (DAY#3, HS) PO ONE (21:00)
--- NOTE | 2020-04-26 02:34 | NUR ---
resting in bed upon initial rounds. aaox4 needs attended. VSS All due meds given as ordered. tolerated po meds well. Continent of bowel and bladder. Uses urinal. Denies any pain nor any discomfort. Fall precautions maintained. Call gamez within reach. Siderails up for safety.
--- NOTE | 2020-04-26 02:42 | NUR ---
OOB in chair upon initial rounds. AAOx4 Needs attended. VSS. Needs Voiding well. No acute distress noted. Assisted back in bed with minimal assist. All due meds given as tolerated. complained of low back pain, medicated with Tramadol as needed. Relief noted. Will monitor patient.Siderails up for safety. Addendum: 04/26/20 at 0252 by SONY CHRISTIE RN wrong patient Addendum: 04/26/20 at 0253 by SONY CHRISTIE RN wrong patient
[2020-04-26 04:00] VITALS: BP 127/71
[2020-04-26] MEDS: PANTOPRAZOLE SODIUM 40 MG TABLET.DR PO SCH (06:17)
--- NOTE | 2020-04-26 06:36 | NUR ---
End of shift notes: quiet night. Slept well most of the shift. Needs attended. Denies any pain nor any discomfort. VSS. OOB in chair this am. Transfer with minimal assist.
[2020-04-26 07:12] LABS: BILIRUBIN,TOTAL 0.5 mg/dL (0.2-1.0); POTASSIUM 4.5 mmol/L (3.5-5.1); TOTAL PROTEIN, SERUM 5.8 g/dL (6.4-8.2)
[2020-04-26 07:27] LABS: BASOPHILS # (AUTO) 0.2 K/uL (0.0-8.0); EOSINOPHILS % (AUTO) 0.1 % (0.0-7.0); HEMATOCRIT 38.8 % (36.7-47.1); HEMOGLOBIN 12.4 g/dL (12.5-16.3); LYMPHOCYTES # (AUTO) 0.4 K/uL (20.0-40.0); MEAN CORPUSCULAR HEMOGLOBIN 25.8 uug (23.8-33.4); MEAN CORPUSCULAR HGB CONC 32 g/dL (32.5-36.3); MEAN CORPUSCULAR VOLUME 80.4 fL (73.0-96.2); MONOCYTES # (AUTO) 0.9 K/uL (2.0-10.0); MONOCYTES % (AUTO) 4.9 % (0.0-11.0); NEUTROPHILS # (AUTO) 17.3 K/uL (1.8-8.9); PLATELET COUNT (AUTO) 143 K/uL (152-348); RED BLOOD CELL COUNT(AUTO) 4.82 MIL/uL (4.06-5.63); WHITE BLOOD COUNT (AUTO) 18.8 K/uL (3.6-10.2)
[2020-04-26 07:30] VITALS: BP 117/72
[2020-04-26] MEDS ORDERED: methylPREDNISolone 4 MG TABLET (DAY#4, ACB) PO ONE (07:30)
[2020-04-26] MEDS: MULTIVITAMINS,THERAPEUTIC TABLET PO SCH (09:07)
[2020-04-26] MEDS: FLUTICASONE PROP NASAL SPRAY 16 GM BOTTLE NS SCH (09:07)
[2020-04-26] MEDS: FUROSEMIDE 20 MG TABLET PO SCH (09:08)
[2020-04-26] MEDS: ACIDOPHILUS/BULGARICUS CHEW TAB PO SCH (09:08)
[2020-04-26] MEDS: METHIMAZOLE 5 MG TABLET PO SCH (09:08)
[2020-04-26] MEDS: METOPROLOL SUCCINATE XL 50 MG TAB.SR.24H PO SCH ×2 (09:10→16:30)
[2020-04-26] MEDS: APIXABAN 5 MG TABLET PO SCH ×2 (09:11→16:32)
[2020-04-26] MEDS: AMIODARONE HCL 200 MG TABLET PO SCH (09:11)
[2020-04-26] MEDS: LOSARTAN POTASSIUM 25 MG TABLET PO SCH (09:16)
[2020-04-26 10:40] LABS: NEUTROPHILS % (MANUAL) 95 % (42-75)
[2020-04-26 10:41] LABS: LYMPHOCYTES % (MANUAL) 2 % (20-40); MONOCYTES % (MANUAL) 3 % (2-10)
[2020-04-26] MEDS ORDERED: methylPREDNISolone 4 MG TABLET (DAY#4, PC LUNCH) PO ONE (12:30)
[2020-04-26 15:56] VITALS: BP 121/59
--- NOTE | 2020-04-26 19:30 | NUR ---
Report received. Patient AA, watching TV. NAD noted.
[2020-04-26 20:00] VITALS: BP 117/65
[2020-04-26] MEDS: ATORVASTATIN 10 MG TABLET PO SCH (20:20)
[2020-04-26] MEDS ORDERED: methylPREDNISolone 4 MG TABLET (DAY#4, HS) PO ONE (21:00)
[2020-04-26] MEDS: IPRATROPIUM BROMIDE 0.5 MG/2.5 ML NEBU NEB PRN (23:18)
[2020-04-26] MEDS: ALBUTEROL SULFATE 1.25 MG/3 ML NEBU NEB PRN (23:19)
--- NOTE | 2020-04-26 23:22 | NUR ---
Patient requesting for a breathing treatment. RT paged. Patient repositioned; HOB elevated. NAD noted. Breathing treatment given by RT.
[2020-04-27 04:00] VITALS: BP 138/66
[2020-04-27] MEDS: PANTOPRAZOLE SODIUM 40 MG TABLET.DR PO SCH (06:12)
--- NOTE | 2020-04-27 06:54 | NUR ---
Slept well during the night. Condition unchanged.
[2020-04-27] MEDS ORDERED: methylPREDNISolone 4 MG TABLET (DAY#5, ACB) PO ONE (07:30)
[2020-04-27 08:00] VITALS: BP 130/68
[2020-04-27] MEDS: AMIODARONE HCL 200 MG TABLET PO SCH (10:06)
[2020-04-27] MEDS: LOSARTAN POTASSIUM 25 MG TABLET PO SCH (10:06)
[2020-04-27] MEDS: FUROSEMIDE 20 MG TABLET PO SCH (10:07)
[2020-04-27] MEDS: METOPROLOL SUCCINATE XL 50 MG TAB.SR.24H PO SCH ×2 (10:07→16:29)
[2020-04-27] MEDS: ACIDOPHILUS/BULGARICUS CHEW TAB PO SCH (10:07)
[2020-04-27] MEDS: MULTIVITAMINS,THERAPEUTIC TABLET PO SCH (10:07)
[2020-04-27] MEDS: APIXABAN 5 MG TABLET PO SCH ×2 (10:11→16:30)
[2020-04-27] MEDS: FLUTICASONE PROP NASAL SPRAY 16 GM BOTTLE NS SCH (10:11)
[2020-04-27] MEDS: METHIMAZOLE 5 MG TABLET PO SCH (10:12)
--- NOTE | 2020-04-27 11:10 | NUR ---
Patient is AAO X 4, NO acute distress noted. NO complains of pain during shift. Vital signs stable for patient. IV site on right upper arm intact and patent. Due morning medications administered as ordered and scheduled and tolerated well. Patient on PT/OT therapy, Patient ambulatory with a walker and 1 person assist. BRP. Skin kept clean and dry. Needs attended, safety measures in place, call light left within easy reach and will continue with care.
[2020-04-27 16:25] VITALS: BP 110/71
--- NOTE | 2020-04-27 19:24 | NUR ---
Patient in stable condition, no new change of condition noted. Endorsed to PM nurse and will continue with care.
--- NOTE | 2020-04-27 19:35 | NUR ---
Received patient in bed alertx4 .HOB elevated.On RA.No s/s of distress noted.Compliant with medications and care.Call light with in reach.Continue safety measures.Will continue to monitor.
[2020-04-27] MEDS: ATORVASTATIN 10 MG TABLET PO SCH (20:08)
[2020-04-27 20:33] VITALS: BP 110/62
[2020-04-27] MEDS ORDERED: methylPREDNISolone 4 MG TABLET (DAY#5, HS) PO ONE (21:00)
[2020-04-28 05:17] VITALS: BP 140/74
[2020-04-28] MEDS: PANTOPRAZOLE SODIUM 40 MG TABLET.DR PO SCH (06:03)
--- NOTE | 2020-04-28 06:39 | NUR ---
Patient sitting up on wheelchair.Alert x4.No s/s of distress .Uses urinal at bedside.Continue safety measures.Will endorse to oncoming AM nurse.
[2020-04-28 06:48] LABS: THYROID STIMULATING HORMONE 3.122 mIU/mL (0.358-3.740)
[2020-04-28 06:50] LABS: BILIRUBIN,TOTAL 0.6 mg/dL (0.2-1.0); CREATININE 0.8 mg/dL (0.6-1.3); POTASSIUM 4.6 mmol/L (3.5-5.1); TOTAL PROTEIN, SERUM 5.9 g/dL (6.4-8.2)
[2020-04-28 06:51] LABS: MAGNESIUM 2.1 mg/dL (1.8-2.4); PHOSPHOROUS 2.7 mg/dL (2.5-4.9)
[2020-04-28] MEDS ORDERED: methylPREDNISolone 4 MG TABLET (DAY#6, ACB) PO ONE (07:30)
[2020-04-28 07:35] VITALS: BP 114/72
[2020-04-28 07:44] LABS: BASOPHILS # (AUTO) 0.2 K/uL (0.0-8.0); BASOPHILS % (AUTO) 1.4 % (0.0-2.0); HEMATOCRIT 39.8 % (36.7-47.1); HEMOGLOBIN 12.9 g/dL (12.5-16.3); LYMPHOCYTES # (AUTO) 0.4 K/uL (20.0-40.0); LYMPHOCYTES % (AUTO) 2.6 % (20.5-51.5); MEAN CORPUSCULAR HEMOGLOBIN 25.9 uug (23.8-33.4); MEAN CORPUSCULAR HGB CONC 33 g/dL (32.5-36.3); MEAN CORPUSCULAR VOLUME 79.6 fL (73.0-96.2); MONOCYTES # (AUTO) 0.9 K/uL (2.0-10.0); MONOCYTES % (AUTO) 6.2 % (0.0-11.0); NEUTROPHILS # (AUTO) 13.2 K/uL (1.8-8.9); NEUTROPHILS % (AUTO) 89.8 % (38.5-71.5); PLATELET COUNT (AUTO) 109 K/uL (152-348); WHITE BLOOD COUNT (AUTO) 14.7 K/uL (3.6-10.2)
--- NOTE | 2020-04-28 08:00 | NUR ---
Received patient sitting on wheelchair. No signs of distress noted. No SOB. No complain of Pain or discomfort. Kept clean and comfortable. kept the call light within easy reach. Will continue to monitor.
[2020-04-28] MEDS: FLUTICASONE PROP NASAL SPRAY 16 GM BOTTLE NS SCH (08:21)
[2020-04-28] MEDS: ACIDOPHILUS/BULGARICUS CHEW TAB PO SCH (08:22)
[2020-04-28] MEDS: FUROSEMIDE 20 MG TABLET PO SCH (08:22)
[2020-04-28] MEDS: AMIODARONE HCL 200 MG TABLET PO SCH (08:22)
[2020-04-28] MEDS: MULTIVITAMINS,THERAPEUTIC TABLET PO SCH (08:23)
[2020-04-28] MEDS: METHIMAZOLE 5 MG TABLET PO SCH (08:23)
[2020-04-28] MEDS: METOPROLOL SUCCINATE XL 50 MG TAB.SR.24H PO SCH ×2 (08:23→17:11)
[2020-04-28] MEDS: LOSARTAN POTASSIUM 25 MG TABLET PO SCH (08:23)
[2020-04-28] MEDS: APIXABAN 5 MG TABLET PO SCH ×2 (08:25→17:11)
[2020-04-28 14:31] VITALS: BP 124/61
--- NOTE | 2020-04-28 18:07 | NUR ---
Patient is awake, alert and verbally responsive. No signs of distress noted. Afebrile. No complain of Pain or discomfort. All due mediation given as ordered. kept clean and comfortable. will endorse to Oncoming nurse.
[2020-04-28 19:51] VITALS: BP 107/65
--- NOTE | 2020-04-28 20:26 | NUR ---
Sleeping during initial rounds. No s/s of respiratory distress noted. Safety measure and fall prevention maintained. Continue care as planned.
[2020-04-28] MEDS: ATORVASTATIN 10 MG TABLET PO SCH (21:09)
[2020-04-29 04:45] VITALS: BP 120/64
[2020-04-29] MEDS: PANTOPRAZOLE SODIUM 40 MG TABLET.DR PO SCH (06:10)
--- NOTE | 2020-04-29 06:35 | NUR ---
Shift End Report: Slept in between care. Uses urinal af bedside, voiding good. NO
--- NOTE | 2020-04-29 06:37 | NUR ---
Shift End Report: VS stable. No further complaint presented. Slept good. Continue current rehab plan of care.
[2020-04-29 08:25] VITALS: BP 107/61
[2020-04-29] MEDS: MULTIVITAMINS,THERAPEUTIC TABLET PO SCH (09:01)
[2020-04-29] MEDS: ACIDOPHILUS/BULGARICUS CHEW TAB PO SCH (09:02)
[2020-04-29] MEDS: METOPROLOL SUCCINATE XL 50 MG TAB.SR.24H PO SCH ×2 (09:02→16:49)
[2020-04-29] MEDS: METHIMAZOLE 5 MG TABLET PO SCH (09:02)
[2020-04-29] MEDS: AMIODARONE HCL 200 MG TABLET PO SCH (09:02)
[2020-04-29] MEDS: FUROSEMIDE 20 MG TABLET PO SCH (09:03)
[2020-04-29] MEDS: LOSARTAN POTASSIUM 25 MG TABLET PO SCH (09:04)
[2020-04-29] MEDS: FLUTICASONE PROP NASAL SPRAY 16 GM BOTTLE NS SCH (09:04)
[2020-04-29] MEDS: APIXABAN 5 MG TABLET PO SCH ×2 (09:06→16:51)
--- NOTE | 2020-04-29 11:00 | NUR ---
Patient is AAO x 4, no acute distress noted. NO complains of SOB. Vital signs stable for patient. No complains of pain at this time. Morning due medications administered and tolerated well. ON continuos PT/OT therapy as ordered. Safety measures in place, needs attended, call light left at bed side and will continue with care.
[2020-04-29 16:03] VITALS: BP 101/64
--- NOTE | 2020-04-29 18:46 | NUR ---
Patient in stable condition, all due evening meds administered and tolerated well. Needs attended, safety measures in place and will continue with care.
--- NOTE | 2020-04-29 19:05 | NUR ---
End of shift report given to pm nurse.
--- NOTE | 2020-04-29 19:15 | NUR ---
In bed, sleeping. No s/s of respiratory distress noted. Safety mesaures and fall prevention maintained. Continue care as planned.
[2020-04-29 20:16] VITALS: BP 118/70
[2020-04-29] MEDS: ATORVASTATIN 10 MG TABLET PO SCH (20:58)
[2020-04-30 05:43] VITALS: BP 115/71
[2020-04-30] MEDS: PANTOPRAZOLE SODIUM 40 MG TABLET.DR PO SCH (06:15)
--- NOTE | 2020-04-30 06:35 | NUR ---
Shift End Report: VS stable. Slept good. No complaint presented all night. All needs attended and met. No significant event reported. Continue current rehab plan of care.
--- NOTE | 2020-04-30 07:30 | NUR ---
Received patient resting in bed, dozing off intermittently. Patient is awake alert and oriented times 4 with no sign of distress noted. There is no IV access and patient is on room air. He has a walker in his room that he uses to ambulate, the patient has daily weights and no SCD pumps because of history of bilateral lower extremities DVT. Safety precautions are in place with call light and belongings within reach. Will continue to monitor.
[2020-04-30 08:00] VITALS: BP 115/68
[2020-04-30] MEDS: FLUTICASONE PROP NASAL SPRAY 16 GM BOTTLE NS SCH (08:54)
[2020-04-30] MEDS: ACIDOPHILUS/BULGARICUS CHEW TAB PO SCH (08:55)
[2020-04-30] MEDS: METHIMAZOLE 5 MG TABLET PO SCH (08:55)
[2020-04-30] MEDS: LOSARTAN POTASSIUM 25 MG TABLET PO SCH (08:55)
[2020-04-30] MEDS: MULTIVITAMINS,THERAPEUTIC TABLET PO SCH (08:55)
[2020-04-30] MEDS: METOPROLOL SUCCINATE XL 50 MG TAB.SR.24H PO SCH ×2 (08:56→17:49)
[2020-04-30] MEDS: FUROSEMIDE 20 MG TABLET PO SCH (08:56)
[2020-04-30] MEDS: AMIODARONE HCL 200 MG TABLET PO SCH (08:56)
[2020-04-30] MEDS: APIXABAN 5 MG TABLET PO SCH ×2 (08:57→17:51)
[2020-04-30 16:15] VITALS: BP 92/60
--- NOTE | 2020-04-30 18:56 | NUR ---
Patient is resting in bed . No distress noted at this time. Gave medication as ordered. Provided comfort measures. Safety precautions observed, bed in lowest position and locked with call light and belongings within reach. Will endorse to oncoming nurse.
--- NOTE | 2020-04-30 19:35 | NUR ---
Watching TV during initial rounds, Denies any pain/discomforts at this time. Safety measures and fall prevention maintained. Continue care as planned.
[2020-04-30 20:00] VITALS: BP 104/64
[2020-04-30] MEDS: ATORVASTATIN 10 MG TABLET PO SCH (20:05)
[2020-05-01 04:00] VITALS: BP 117/65
[2020-05-01] MEDS: PANTOPRAZOLE SODIUM 40 MG TABLET.DR PO SCH (06:14)
[2020-05-01 06:43] LABS: BASOPHILS % (AUTO) 0.3 % (0.0-2.0); EOSINOPHILS # (AUTO) 0.1 K/uL (0.0-0.7); EOSINOPHILS % (AUTO) 1.6 % (0.0-7.0); HEMATOCRIT 35.5 % (36.7-47.1); HEMOGLOBIN 11.7 g/dL (12.5-16.3); LYMPHOCYTES # (AUTO) 0.4 K/uL (20.0-40.0); LYMPHOCYTES % (AUTO) 4.1 % (20.5-51.5); MEAN CORPUSCULAR HEMOGLOBIN 26.3 uug (23.8-33.4); MEAN CORPUSCULAR HGB CONC 33 g/dL (32.5-36.3); MEAN CORPUSCULAR VOLUME 80.2 fL (73.0-96.2); MONOCYTES # (AUTO) 0.9 K/uL (2.0-10.0); MONOCYTES % (AUTO) 10.4 % (0.0-11.0); NEUTROPHILS # (AUTO) 7.4 K/uL (1.8-8.9); NEUTROPHILS % (AUTO) 83.6 % (38.5-71.5); PLATELET COUNT (AUTO) 113 K/uL (152-348); RED BLOOD CELL COUNT(AUTO) 4.43 MIL/uL (4.06-5.63); WHITE BLOOD COUNT (AUTO) 8.8 K/uL (3.6-10.2)
[2020-05-01 06:56] LABS: CREATININE 1.1 mg/dL (0.6-1.3); POTASSIUM 3.7 mmol/L (3.5-5.1)
--- NOTE | 2020-05-01 06:57 | NUR ---
Shift End Report: Vs stable. No complaint presented all night. All needs attended and met. No significant event reported. Continue current rehab plan of care. Slept well.
[2020-05-01 08:00] VITALS: BP 111/66
[2020-05-01] MEDS: FLUTICASONE PROP NASAL SPRAY 16 GM BOTTLE NS SCH (09:02)
[2020-05-01] MEDS: ACIDOPHILUS/BULGARICUS CHEW TAB PO SCH (09:02)
[2020-05-01] MEDS: AMIODARONE HCL 200 MG TABLET PO SCH (09:04)
[2020-05-01] MEDS: FUROSEMIDE 20 MG TABLET PO SCH (09:04)
[2020-05-01] MEDS: METOPROLOL SUCCINATE XL 50 MG TAB.SR.24H PO SCH ×2 (09:04→17:07)
[2020-05-01] MEDS: LOSARTAN POTASSIUM 25 MG TABLET PO SCH (09:05)
[2020-05-01] MEDS: METHIMAZOLE 5 MG TABLET PO SCH (09:06)
[2020-05-01] MEDS: MULTIVITAMINS,THERAPEUTIC TABLET PO SCH (09:06)
[2020-05-01] MEDS: APIXABAN 5 MG TABLET PO SCH ×2 (09:06→17:06)
[2020-05-01 16:00] VITALS: BP 110/61
--- NOTE | 2020-05-01 18:02 | NUR ---
PATIENT IS ALERT, ORIENTED X4, NO DISTRESS NOTED, NO CHANGES NOTED DURING SHIFT, NEEDS ATTENDED TIMELY.
[2020-05-01 20:00] VITALS: BP 103/66
[2020-05-01] MEDS: ATORVASTATIN 10 MG TABLET PO SCH (20:13)
--- NOTE | 2020-05-01 20:32 | NUR ---
Awake, trying to get out of bed. FRONT OFFICE COORDINATOR at bedside assisting. Assisted back to bed, urinal offered. Voided well no problem. Safety measures and fall prevention maintained. Continue care as planned.
[2020-05-02 05:00] VITALS: BP 117/67
[2020-05-02] MEDS: PANTOPRAZOLE SODIUM 40 MG TABLET.DR PO SCH (05:31)
--- NOTE | 2020-05-02 05:40 | NUR ---
Shift End Report: Vs juhi. No complaint presented all night. Voided per urinal, qs clear sharath colored urine output. All needs attended and met. No significant event reported. Continue current rehab plan of care.
[2020-05-02 07:30] VITALS: BP 110/67
[2020-05-02] MEDS: APIXABAN 5 MG TABLET PO SCH (08:39)
[2020-05-02] MEDS: AMIODARONE HCL 200 MG TABLET PO SCH (08:39)
[2020-05-02] MEDS: LOSARTAN POTASSIUM 25 MG TABLET PO SCH (08:40)
[2020-05-02] MEDS: ACIDOPHILUS/BULGARICUS CHEW TAB PO SCH (08:40)
[2020-05-02 08:41] VITALS: BP 110/67
[2020-05-02] MEDS: FUROSEMIDE 20 MG TABLET PO SCH (08:41)
[2020-05-02] MEDS: MULTIVITAMINS,THERAPEUTIC TABLET PO SCH (08:41)
[2020-05-02] MEDS: METOPROLOL SUCCINATE XL 50 MG TAB.SR.24H PO SCH (08:41)
[2020-05-02] MEDS: METHIMAZOLE 5 MG TABLET PO SCH (08:41)
[2020-05-02] MEDS: FLUTICASONE PROP NASAL SPRAY 16 GM BOTTLE NS SCH (08:42)
--- NOTE | 2020-05-02 11:17 | NUR ---
Received patient awake in bed. AOX4 in stable condition. no complaint of pain.discomfort noted. Patient for discharge today around2-3pm. MD Sr notified. TMS done, discharge prescription and summary discuss and given to patient. verbalize understanding. Patient last day of therapy tolerated well. will continue monitor
--- NOTE | 2020-05-02 15:17 | NUR ---
Patient discharge around 215pm in stable condition via private car, bulk picker by . Discharge prescription discuss to and verbalize understanding. Patient thankful for the service given. not in distress.
== END 2020-05-02 14:15 | disposition home health service (06) | DRG 280 ==
PROVIDERS: ADMIT Physical Medicine & Rehabilitation Pain Medicine; ATTEND Physical Medicine & Rehabilitation Pain Medicine
DX: I11.0 Hypertensive heart disease with heart failure (principal); I21.A1 Myocardial infarction type 2; G92 Toxic encephalopathy; J96.00 Acute respiratory failure, unspecified whether with hypoxia or hypercapnia; N17.0 Acute kidney failure with tubular necrosis; E43 Unspecified severe protein-calorie malnutrition; J96.01 Acute respiratory failure with hypoxia; J96.02 Acute respiratory failure with hypercapnia; J69.0 Pneumonitis due to inhalation of food and vomit; D68.9 Coagulation defect, unspecified; I48.92 Unspecified atrial flutter; J44.0 Chronic obstructive pulmonary disease with (acute) lower respiratory infection; J44.1 Chronic obstructive pulmonary disease with (acute) exacerbation; J45.901 Unspecified asthma with (acute) exacerbation; I50.43 Acute on chronic combined systolic (congestive) and diastolic (congestive) heart failure; E05.90 Thyrotoxicosis, unspecified without thyrotoxic crisis or storm; I42.9 Cardiomyopathy, unspecified; I48.91 Unspecified atrial fibrillation; D50.9 Iron deficiency anemia, unspecified; I43 Cardiomyopathy in diseases classified elsewhere; R73.03 Prediabetes; Z79.01 Long term (current) use of anticoagulants; Z86.711 Personal history of pulmonary embolism; Z86.718 Personal history of other venous thrombosis and embolism; R19.5 Other fecal abnormalities
CPT/HCPCS: 36415; 70030-TC; 71045; 83735; 84100; 84443; 85025; 94640; J3535; J3590; J7509

== ENCOUNTER 2020-06-03 11:30 | Inpatient (IN) | payer BC, MEDICARE ==
[~2020-06-03] VITALS: Ht 180.3 cm; Wt 82.6 kg
[~2020-06-03 11:30] MED LIST changes: +METO-357 PO
[2020-06-03] MEDS ORDERED: ALBUTEROL SULFATE 8 GM HFA.AER.AD IH STA (11:44)
[2020-06-03] MEDS ORDERED: ASPIRIN 81 MG TAB.CHEW PO ONE (11:45)
[2020-06-03] MEDS ORDERED: methylPREDNISolone SOD SUCC 125 MG/2 ML VIAL IV ONE (11:45)
[2020-06-03] MEDS: AMIODARONE HCL IV 150 MG in IV DEXTROSE 5% 100 ML IV ONE (11:45)
[2020-06-03 11:58] LABS: EOSINOPHILS % (AUTO) 0.1 % (0.0-7.0); NEUTROPHILS # (AUTO) 9.7 K/uL (1.8-8.9); NEUTROPHILS % (AUTO) 83.6 % (38.5-71.5)
[2020-06-03] MEDS ORDERED: ASPIRIN 81 MG TAB.CHEW ONE (12:00)
[2020-06-03] MEDS ORDERED: methylPREDNISolone SOD SUCC 125 MG/2 ML VIAL ONE (12:00)
[2020-06-03 12:03] LABS: BASOPHILS % (AUTO) 0.2 % (0.0-2.0); HEMATOCRIT 33.5 % (36.7-47.1); HEMOGLOBIN 10.8 g/dL (12.5-16.3); LYMPHOCYTES # (AUTO) 0.4 K/uL (20.0-40.0); LYMPHOCYTES % (AUTO) 3.1 % (20.5-51.5); MEAN CORPUSCULAR HEMOGLOBIN 25.4 uug (23.8-33.4); MEAN CORPUSCULAR HGB CONC 32 g/dL (32.5-36.3); MEAN CORPUSCULAR VOLUME 78.9 fL (73.0-96.2); MONOCYTES # (AUTO) 1.5 K/uL (2.0-10.0); PLATELET COUNT (AUTO) 306 K/uL (152-348); RED BLOOD CELL COUNT(AUTO) 4.25 MIL/uL (4.06-5.63); WHITE BLOOD COUNT (AUTO) 11.5 K/uL (3.6-10.2)
[2020-06-03 12:08] LABS: MAGNESIUM 1.8 mg/dL (1.8-2.4); PHOSPHOROUS 3.5 mg/dL (2.5-4.9)
[2020-06-03 12:20] LABS: CREATININE 1.3 mg/dL (0.6-1.3); POTASSIUM 3.4 mmol/L (3.5-5.1)
[2020-06-03 12:27] LABS: ABG BASE EXCESS 4.5 mmol/L; ABG HCO3 27.8 mmol/L; ABG PCO2 36.7 mmHg (35.0-45.0); ABG PH 7.498 (7.350-7.450); ABG PO2 117.4 mmHg (75.0-100.0); ABG SITE RIGHT RADIAL; ABG TOTAL HEMOGLOBIN 10.3 G/dL (13.5-18.0); MetHb 0.1 % (0.0-1.5); O2Hb 97.8 % (94.0-97.0); VENT MODE Nasal Cannula
[2020-06-03] MEDS ORDERED: levoFLOXacin 500 MG/D5W 100 ML ONE (12:28)
[2020-06-03] MEDS ORDERED: CEFEPIME HCL 1 G VIAL ONE (12:28)
[2020-06-03] MEDS ORDERED: CEFEPIME HCL 1 G in IV DEXTROSE 5% 50 ML IV ONE (12:30)
[2020-06-03] MEDS ORDERED: levoFLOXacin 500 MG/D5W 100ML PIGGYBACK IV ONE (12:30)
[2020-06-03 12:36] LABS: BILIRUBIN,DIRECT 0.2 mg/dL (0.0-0.2); BILIRUBIN,TOTAL 0.6 mg/dL (0.2-1.0); TOTAL PROTEIN, SERUM 7.6 g/dL (6.4-8.2)
[2020-06-03] MEDS ORDERED: IOHEXOL 350 100 ML INFUS..BTL ONE (12:47)
[2020-06-03] MEDS ORDERED: IV NORMAL SALINE 250 ML IV ONE (12:47)
[2020-06-03] MEDS ORDERED: SWABABLE VALVE TRANSFER SET EA MC ONE (12:47)
[2020-06-03] MEDS ORDERED: POTASSIUM CHLORIDE 20 MEQ TAB.PRT.SR PO ONE (13:00)
[2020-06-03] MEDS ORDERED: FLUT1BLS13 IH (13:18)
[2020-06-03] MEDS ORDERED: POTASSIUM CHLORIDE 20 MEQ TAB.PRT.SR ONE (13:19)
[2020-06-03] MEDS ORDERED: METO-357 PO (13:20)
[2020-06-03] MEDS ORDERED: FURO-151 PO (13:20)
[2020-06-03] MEDS ORDERED: LOSA25TA27 PO (13:21)
[2020-06-03 13:34] LABS: THYROID STIMULATING HORMONE 2.256 mIU/mL (0.358-3.740)
[2020-06-03] MEDS: AMIODARONE HCL IV 450 MG in IV DEXTROSE 5% 250 ML IV PRN ×2 (14:44→15:32)
[2020-06-03] MEDS ORDERED: HYDROCODONE/APAP 5-325MG TABLET PO PRN (16:30)
[2020-06-03] MEDS ORDERED: ACETAMINOPHEN 325 MG TABLET PO PRN ×2 (16:30→19:00)
[2020-06-03] MEDS ORDERED: MAGNESIUM HYDROXIDE 30 ML LIQUID UDC PO PRN (16:30)
[2020-06-03] MEDS ORDERED: ONDANSETRON 4 MG/2 ML VIAL IV PRN (16:30)
[2020-06-03] MEDS ORDERED: APIXABAN 2.5 MG TABLET PO SCH (21:00)
[2020-06-03] MEDS ORDERED: ATORVASTATIN 10 MG TABLET ONE (22:23)
[2020-06-03] MEDS: METOPROLOL SUCCINATE XL 50 MG TAB.SR.24H PO SCH (22:30)
[2020-06-03] MEDS: ATORVASTATIN 10 MG TABLET PO SCH (22:30)
[2020-06-04 02:27] VITALS: BP 100/48
[2020-06-04] MEDS: PROTEIN SUPPLEMENT (PROSTAT) 30 ML LIQUID PO SCH ×3 (08:00→16:56)
[2020-06-04 08:03] LABS: BASOPHILS % (AUTO) 0.1 % (0.0-2.0); HEMATOCRIT 28.1 % (36.7-47.1); HEMOGLOBIN 9.1 g/dL (12.5-16.3); LYMPHOCYTES # (AUTO) 0.2 K/uL (20.0-40.0); LYMPHOCYTES % (AUTO) 1.8 % (20.5-51.5); MEAN CORPUSCULAR HEMOGLOBIN 25.8 uug (23.8-33.4); MEAN CORPUSCULAR HGB CONC 33 g/dL (32.5-36.3); MEAN CORPUSCULAR VOLUME 79.4 fL (73.0-96.2); MONOCYTES # (AUTO) 0.9 K/uL (2.0-10.0); MONOCYTES % (AUTO) 7.5 % (0.0-11.0); NEUTROPHILS # (AUTO) 11.1 K/uL (1.8-8.9); NEUTROPHILS % (AUTO) 90.6 % (38.5-71.5); PLATELET COUNT (AUTO) 196 K/uL (152-348); RED BLOOD CELL COUNT(AUTO) 3.54 MIL/uL (4.06-5.63); WHITE BLOOD COUNT (AUTO) 12.3 K/uL (3.6-10.2)
[2020-06-04] MEDS: METOPROLOL SUCCINATE XL 50 MG TAB.SR.24H PO SCH ×2 (09:00→17:00)
[2020-06-04] MEDS ORDERED: FUROSEMIDE 20 MG TABLET PO SCH (09:00)
[2020-06-04] MEDS ORDERED: APIXABAN 5 MG TABLET PO SCH (09:00)
[2020-06-04] MEDS: MULTIVITAMINS,THERAPEUTIC TABLET PO SCH (09:09)
[2020-06-04] MEDS: ACIDOPHILUS/BULGARICUS CHEW TAB PO SCH (09:09)
[2020-06-04] MEDS: Z GUARD REMEDY PASTE 57 GM TUBE TOP PRN (09:16)
[2020-06-04 10:23] LABS: BILIRUBIN,TOTAL 0.2 mg/dL (0.2-1.0); CREATININE 1.2 mg/dL (0.6-1.3); PHOSPHOROUS 3.8 mg/dL (2.5-4.9); POTASSIUM 4.2 mmol/L (3.5-5.1); TOTAL PROTEIN, SERUM 6.4 g/dL (6.4-8.2)
[2020-06-04] MEDS: predniSONE 20 MG TABLET PO SCH ×2 (10:32→17:42)
[2020-06-04] MEDS: FUROSEMIDE 40 MG/4 ML VIAL IV SCH (10:57)
[2020-06-04] MEDS: IPRATROPIUM BROMIDE 0.5 MG/2.5 ML NEBU IH SCH ×3 (11:03→19:51)
[2020-06-04 11:06] VITALS: BP 111/57
[2020-06-04] MEDS ORDERED: levoFLOXacin 500 MG/D5W 500 MG in PREMIXED 1 EACH IV SCH (12:00)
[2020-06-04] MEDS: CEFTRIAXONE 1 G in IV DEXTROSE 5% 50 ML IV SCH (13:27)
[2020-06-04] MEDS ORDERED: BISACODYL 10 MG SUPP.RECT RC PRN (14:45)
[2020-06-04 15:47] LABS: *BILIRUBIN,URIN NEGATIVE (NEGATIVE); *BLOOD, URINE NEGATIVE (NEGATIVE); *CLARITY,URINE CLEAR (CLEAR); *COLOR,URINE YELLOW (YELLOW); *KETONES,URINE NEGATIVE (NEGATIVE); *UROBILINOGEN,URINE 0.2 E.U./dl (NORMAL); LEUKOCYTE ESTERASE ,URINE NEGATIVE (NEGATIVE); NITRITE, URINE NEGATIVE (NEGATIVE); UGLUCOSE NEGATIVE (NEGATIVE)
[2020-06-04 16:19] VITALS: BP 99/57
[2020-06-04 20:00] VITALS: BP 109/69
[2020-06-04] MEDS: ATORVASTATIN 10 MG TABLET PO SCH (21:28)
[2020-06-04] MEDS: ENOXAPARIN SODIUM 80 MG/0.8 ML DISP.SYRIN SQ SCH (21:36)
[2020-06-05 00:37] VITALS: BP 96/59
[2020-06-05 04:00] VITALS: BP 97/70
[2020-06-05 06:06] LABS: BASOPHILS % (AUTO) 0.1 % (0.0-2.0); HEMATOCRIT 28.9 % (36.7-47.1); HEMOGLOBIN 9.3 g/dL (12.5-16.3); LYMPHOCYTES # (AUTO) 0.3 K/uL (20.0-40.0); LYMPHOCYTES % (AUTO) 1.6 % (20.5-51.5); MEAN CORPUSCULAR HEMOGLOBIN 25.2 uug (23.8-33.4); MEAN CORPUSCULAR HGB CONC 32 g/dL (32.5-36.3); MEAN CORPUSCULAR VOLUME 78.7 fL (73.0-96.2); MONOCYTES # (AUTO) 1.4 K/uL (2.0-10.0); MONOCYTES % (AUTO) 8.7 % (0.0-11.0); NEUTROPHILS # (AUTO) 14.6 K/uL (1.8-8.9); NEUTROPHILS % (AUTO) 89.6 % (38.5-71.5); PLATELET COUNT (AUTO) 278 K/uL (152-348); RED BLOOD CELL COUNT(AUTO) 3.67 MIL/uL (4.06-5.63); WHITE BLOOD COUNT (AUTO) 16.3 K/uL (3.6-10.2)
[2020-06-05 06:56] LABS: CREATININE 1.3 mg/dL (0.6-1.3); MAGNESIUM 1.9 mg/dL (1.8-2.4); PHOSPHOROUS 3.4 mg/dL (2.5-4.9); POTASSIUM 4.1 mmol/L (3.5-5.1)
[2020-06-05] MEDS: IPRATROPIUM BROMIDE 0.5 MG/2.5 ML NEBU IH SCH ×3 (07:30→19:11)
[2020-06-05] MEDS: METOPROLOL SUCCINATE XL 50 MG TAB.SR.24H PO SCH ×2 (07:37→16:25)
[2020-06-05] MEDS: MULTIVITAMINS,THERAPEUTIC TABLET PO SCH (08:35)
[2020-06-05] MEDS: ACIDOPHILUS/BULGARICUS CHEW TAB PO SCH (08:35)
[2020-06-05] MEDS: FUROSEMIDE 40 MG/4 ML VIAL IV SCH (08:35)
[2020-06-05] MEDS: predniSONE 20 MG TABLET PO SCH ×2 (08:35→17:17)
[2020-06-05] MEDS: PROTEIN SUPPLEMENT (PROSTAT) 30 ML LIQUID PO SCH ×3 (08:36→16:26)
[2020-06-05] MEDS: ENOXAPARIN SODIUM 80 MG/0.8 ML DISP.SYRIN SQ SCH ×2 (10:20→21:17)
[2020-06-05 11:45] VITALS: BP 123/73
[2020-06-05] MEDS: CEFTRIAXONE 1 G in IV DEXTROSE 5% 50 ML IV SCH (12:45)
[2020-06-05] MEDS: AMIODARONE HCL 200 MG TABLET PO SCH ×2 (13:47→20:13)
[2020-06-05 15:40] VITALS: BP 131/56
[2020-06-05] MEDS: ATORVASTATIN 10 MG TABLET PO SCH (20:13)
[2020-06-05 20:59] VITALS: BP 114/83
[2020-06-06] VITALS: BP 115/72
[2020-06-06 04:00] VITALS: BP 110/72
[2020-06-06] MEDS: IPRATROPIUM BROMIDE 0.5 MG/2.5 ML NEBU IH SCH ×3 (06:39→19:18)
[2020-06-06] MEDS: predniSONE 20 MG TABLET PO SCH ×2 (07:29→17:00)
[2020-06-06] MEDS: PROTEIN SUPPLEMENT (PROSTAT) 30 ML LIQUID PO SCH ×3 (07:44→16:13)
[2020-06-06] MEDS: ACIDOPHILUS/BULGARICUS CHEW TAB PO SCH (08:28)
[2020-06-06] MEDS: FUROSEMIDE 40 MG/4 ML VIAL IV SCH (08:28)
[2020-06-06] MEDS: METOPROLOL SUCCINATE XL 50 MG TAB.SR.24H PO SCH ×2 (08:29→16:11)
[2020-06-06] MEDS: AMIODARONE HCL 200 MG TABLET PO SCH ×3 (08:29→21:18)
[2020-06-06] MEDS: MULTIVITAMINS,THERAPEUTIC TABLET PO SCH (08:30)
[2020-06-06] MEDS: ENOXAPARIN SODIUM 80 MG/0.8 ML DISP.SYRIN SQ SCH (09:30)
[2020-06-06 11:09] VITALS: BP 105/73
[2020-06-06] MEDS: CEFTRIAXONE 1 G in IV DEXTROSE 5% 50 ML IV SCH (12:11)
[2020-06-06] MEDS ORDERED: IV NORMAL SALINE 250 ML IV ONE (13:10)
[2020-06-06] MEDS ORDERED: SWABABLE VALVE TRANSFER SET EA MC ONE (13:10)
[2020-06-06] MEDS ORDERED: IOHEXOL 300MG/ML 100 ML INFUS..BTL ONE (13:10)
[2020-06-06] MEDS ORDERED: MAGNESIUM HYDROXIDE 30 ML LIQUID UDC PO PRN (13:45)
[2020-06-06] MEDS ORDERED: MAGNESIUM HYDROXIDE 30 ML LIQUID UDC PO ONE (13:45)
[2020-06-06] MEDS ORDERED: BISACODYL 10 MG SUPP.RECT RC PRN (13:45)
[2020-06-06] MEDS ORDERED: FLEET ENEMA 133 ML BOTTLE RC PRN (13:45)
[2020-06-06 15:17] VITALS: BP 130/66
[2020-06-06 20:25] VITALS: BP 137/82
[2020-06-06] MEDS: ATORVASTATIN 10 MG TABLET PO SCH ×2 (20:59→21:00)
[2020-06-06] MEDS: APIXABAN 5 MG TABLET PO SCH (21:37)
[2020-06-07] VITALS: BP 130/61
[2020-06-07 04:00] VITALS: BP 120/89
[2020-06-07] MEDS: IPRATROPIUM BROMIDE 0.5 MG/2.5 ML NEBU IH SCH ×3 (08:28→20:26)
[2020-06-07] MEDS: MULTIVITAMINS,THERAPEUTIC TABLET PO SCH (08:33)
[2020-06-07] MEDS: FUROSEMIDE 40 MG TABLET PO SCH (08:33)
[2020-06-07] MEDS: predniSONE 20 MG TABLET PO SCH ×2 (08:33→17:23)
[2020-06-07] MEDS: ACIDOPHILUS/BULGARICUS CHEW TAB PO SCH (08:33)
[2020-06-07] MEDS: APIXABAN 5 MG TABLET PO SCH ×2 (08:34→20:06)
[2020-06-07] MEDS: PROTEIN SUPPLEMENT (PROSTAT) 30 ML LIQUID PO SCH ×3 (08:35→17:27)
[2020-06-07] MEDS: AMIODARONE HCL 200 MG TABLET PO SCH ×2 (08:36→20:06)
[2020-06-07] MEDS: METOPROLOL SUCCINATE XL 50 MG TAB.SR.24H PO SCH ×2 (08:37→17:24)
[2020-06-07 10:03] LABS: BILIRUBIN,TOTAL 0.3 mg/dL (0.2-1.0); CREATININE 1.2 mg/dL (0.6-1.3); POTASSIUM 3.8 mmol/L (3.5-5.1); TOTAL PROTEIN, SERUM 6.7 g/dL (6.4-8.2)
[2020-06-07 11:13] LABS: BASOPHILS % (AUTO) 0.3 % (0.0-2.0); HEMATOCRIT 33.4 % (36.7-47.1); HEMOGLOBIN 10.6 g/dL (12.5-16.3); LYMPHOCYTES # (AUTO) 0.3 K/uL (20.0-40.0); LYMPHOCYTES % (AUTO) 1.9 % (20.5-51.5); MEAN CORPUSCULAR HEMOGLOBIN 25.3 uug (23.8-33.4); MEAN CORPUSCULAR HGB CONC 32 g/dL (32.5-36.3); MONOCYTES # (AUTO) 1.1 K/uL (2.0-10.0); MONOCYTES % (AUTO) 7.6 % (0.0-11.0); NEUTROPHILS # (AUTO) 12.7 K/uL (1.8-8.9); NEUTROPHILS % (AUTO) 90.2 % (38.5-71.5); PLATELET COUNT (AUTO) 269 K/uL (152-348); RED BLOOD CELL COUNT(AUTO) 4.18 MIL/uL (4.06-5.63); WHITE BLOOD COUNT (AUTO) 14.1 K/uL (3.6-10.2)
[2020-06-07 11:33] VITALS: BP 107/71
[2020-06-07] MEDS: CEFTRIAXONE 1 G in IV DEXTROSE 5% 50 ML IV SCH (12:30)
[2020-06-07] MEDS ORDERED: FLUTICASONE/VILANTEROL 1 EACH BLST.W.DEV INH SCH (15:00)
[2020-06-07 16:00] VITALS: BP 123/68
[2020-06-07 17:57] LABS: ALBUMIN 1.9; ALPHA-1-GLOBULIN 0.5
[2020-06-07 17:59] LABS: ALPHA-2-GLOBULIN 1.2; BETA GLOBULIN 0.9; GAMMA GLOBULIN 0.9
[2020-06-07 18:00] LABS: A/G RATIO 0.5; GLOBULIN, TOTAL 3.5; M-SPIKE NOT OBSERVED
[2020-06-07 18:02] LABS: *IMMUNOFIXATION RESULT ABNORMAL; *IMMUNOGLOBULIN G, SERUM 813; IMMUNOGLOBULIN A, SERUM 284; IMMUNOGLOBULIN M, SERUM 296
[2020-06-07] MEDS: ATORVASTATIN 10 MG TABLET PO SCH (20:06)
[2020-06-07 20:29] VITALS: BP 146/86
[2020-06-08 00:49] VITALS: BP 128/76
[2020-06-08 04:50] VITALS: BP 120/79
[2020-06-08] MEDS: IPRATROPIUM BROMIDE 0.5 MG/2.5 ML NEBU IH SCH ×2 (07:42→13:26)
[2020-06-08 07:46] LABS: CREATININE 1.2 mg/dL (0.6-1.3); MAGNESIUM 2.4 mg/dL (1.8-2.4); PHOSPHOROUS 3.5 mg/dL (2.5-4.9); POTASSIUM 4.4 mmol/L (3.5-5.1)
[2020-06-08 07:48] LABS: BASOPHILS % (AUTO) 0.1 % (0.0-2.0); HEMATOCRIT 33.2 % (36.7-47.1); HEMOGLOBIN 10.5 g/dL (12.5-16.3); LYMPHOCYTES # (AUTO) 0.4 K/uL (20.0-40.0); LYMPHOCYTES % (AUTO) 2.3 % (20.5-51.5); MEAN CORPUSCULAR HEMOGLOBIN 25.5 uug (23.8-33.4); MEAN CORPUSCULAR HGB CONC 32 g/dL (32.5-36.3); MEAN CORPUSCULAR VOLUME 80.6 fL (73.0-96.2); MONOCYTES # (AUTO) 1.7 K/uL (2.0-10.0); MONOCYTES % (AUTO) 9.9 % (0.0-11.0); NEUTROPHILS # (AUTO) 15.3 K/uL (1.8-8.9); NEUTROPHILS % (AUTO) 87.7 % (38.5-71.5); PLATELET COUNT (AUTO) 248 K/uL (152-348); RED BLOOD CELL COUNT(AUTO) 4.12 MIL/uL (4.06-5.63); WHITE BLOOD COUNT (AUTO) 17.4 K/uL (3.6-10.2)
[2020-06-08] MEDS: AMIODARONE HCL 200 MG TABLET PO SCH ×2 (08:31→18:47)
[2020-06-08] MEDS: predniSONE 20 MG TABLET PO SCH ×2 (08:31→16:51)
[2020-06-08] MEDS: MULTIVITAMINS,THERAPEUTIC TABLET PO SCH (08:34)
[2020-06-08] MEDS: ACIDOPHILUS/BULGARICUS CHEW TAB PO SCH (08:34)
[2020-06-08] MEDS: FUROSEMIDE 40 MG TABLET PO SCH (08:34)
[2020-06-08] MEDS: METOPROLOL SUCCINATE XL 50 MG TAB.SR.24H PO SCH ×2 (08:34→16:52)
[2020-06-08] MEDS: PROTEIN SUPPLEMENT (PROSTAT) 30 ML LIQUID PO SCH ×3 (08:35→16:52)
[2020-06-08] MEDS: APIXABAN 5 MG TABLET PO SCH ×2 (08:36→18:48)
[2020-06-08] MEDS: Z GUARD REMEDY PASTE 57 GM TUBE TOP PRN (08:38)
[2020-06-08 11:57] VITALS: BP 115/58
[2020-06-08] MEDS: CEFTRIAXONE 1 G in IV DEXTROSE 5% 50 ML IV SCH (12:09)
[2020-06-08] MEDS ORDERED: AMIO200T6 PO (13:14)
[2020-06-08] MEDS ORDERED: METO-357 PO (13:14)
[2020-06-08] MEDS ORDERED: PRED20TA PO (13:14)
[2020-06-08] MEDS ORDERED: CEPH-570 PO (13:14)
[2020-06-08 15:50] VITALS: BP 107/66
[2020-06-08 16:52] VITALS: BP 131/73
== END 2020-06-08 19:00 | disposition home health service (06) | DRG 308 ==
LOC: ER 11:30 → TELE3 06-04 01:01
PROVIDERS: ADMIT Nurse Practitioner Acute Care; ATTEND Registered Nurse
DX: I48.0 Paroxysmal atrial fibrillation (principal); J96.01 Acute respiratory failure with hypoxia; I50.23 Acute on chronic systolic (congestive) heart failure; J18.9 Pneumonia, unspecified organism; E43 Unspecified severe protein-calorie malnutrition; G92 Toxic encephalopathy; N17.0 Acute kidney failure with tubular necrosis; J44.0 Chronic obstructive pulmonary disease with (acute) lower respiratory infection; J44.1 Chronic obstructive pulmonary disease with (acute) exacerbation; I13.0 Hypertensive heart and chronic kidney disease with heart failure and stage 1 through stage 4 chronic kidney disease, or unspecified chronic kidney disease; J45.901 Unspecified asthma with (acute) exacerbation; E87.2 Acidosis; K86.2 Cyst of pancreas; C85.90 Non-Hodgkin lymphoma, unspecified, unspecified site; I48.92 Unspecified atrial flutter; I42.0 Dilated cardiomyopathy; D72.829 Elevated white blood cell count, unspecified; D64.9 Anemia, unspecified; E03.9 Hypothyroidism, unspecified; E78.5 Hyperlipidemia, unspecified; I25.10 Atherosclerotic heart disease of native coronary artery without angina pectoris; Z86.718 Personal history of other venous thrombosis and embolism; Z86.711 Personal history of pulmonary embolism; Z79.01 Long term (current) use of anticoagulants; E05.90 Thyrotoxicosis, unspecified without thyrotoxic crisis or storm; I25.2 Old myocardial infarction; E88.09 Other disorders of plasma-protein metabolism, not elsewhere classified; R59.0 Localized enlarged lymph nodes; R91.1 Solitary pulmonary nodule; N18.9 Chronic kidney disease, unspecified; D73.89 Other diseases of spleen
CPT/HCPCS: 36415; 36600; 70030-TC; 71045; 71275; 82784; 83550; 83605; 83615; 83735; 84100; 84155; 84165; 84443; 85025; 85610; 85730; 86334; 87040; 93005; 94640; 94664; G0378; J0282; J0692; J0696; J1650; J1940; J1956; J2930; J3535; J3590; J7050; J7060; J7512; Q9967